=== PATIENT | female | born 1955 | race Caucasian/White ===

== ENCOUNTER 2017-09-18 16:28 | Inpatient (IN) | payer OTHER ==
[~2017-09-18] VITALS: Ht 167.6 cm; Wt 70.0 kg
[2017-09-18] MEDS ORDERED: SOD CHLORIDE 0.9% 1,000 ML IV STA (16:31)
[2017-09-18 16:33] VITALS: Ht 167.6 cm; Wt 70.0 kg
[2017-09-18 16:53] LABS: BASOPHIL # 0.1 10^3/ul (0.0-0.1); BASOPHILS % 0.7 % (0.0-2.0); EOSINOPHILS # 0.5 10^3/ul (0.0-0.5); EOSINOPHILS % 5.3 % (0.0-7.0); HEMATOCRIT 36.8 % (37.0-47.0); HEMOGLOBIN 12.3 g/dl (12.0-16.0); LYMPHOCYTES # 2.4 10^3/ul (0.8-2.9); LYMPHOCYTES % 25.7 % (15.0-51.0); MEAN CORPUSCULAR HEMOGLOBIN 29.6 pg (29.0-33.0); MEAN CORPUSCULAR HGB CONC 33.4 g/dl (32.0-37.0); MEAN CORPUSCULAR VOLUME 88.7 fl (82.0-101.0); MEAN PLATELET VOLUME 10.2 fl (7.4-10.4); MONOCYTE # 0.6 10^3/ul (0.3-0.9); MONOCYTES % 6.5 % (0.0-11.0); NEUTROPHIL # 5.7 10^3/ul (1.6-7.5); NEUTROPHILS % 61.3 % (39.0-77.0); PLATELET COUNT 270 10^3/UL (140-415); RED BLOOD COUNT 4.15 10^6/ul (4.20-5.40); RED CELL DISTRIBUTION WIDTH 11.9 % (11.5-14.5); WHITE BLOOD COUNT 9.4 10^3/ul (4.8-10.8)
--- NOTE | 2017-09-18 16:57 | ERD ---
ER Documentation Chief Complaint Chief Complaint BIB RA FOR EVAL OF RT HIP PAIN. S/P FALL WITH SHORTENING AND EXT ROTATION HPI This is a 62-year-old female with a past medical history of estrogen use that was recently discontinued 1-2 weeks ago who is presenting after a fall. The patient was reportedly carrying a young child down the steps when she missed the last step and fell, landing on her right hip. She felt immediate pain to the right hip and has limited range of motion to that hip secondary to pain. She is not have any pallor or cyanosis or difficulty with movement to the ankle or foot. Her tibial pulses are symmetric and intact. Her strength and sensation is normal distal to the injury. She also sustained a minor abrasion to the right elbow. The child was unharmed. The patient denies feeling sick recently. The patient denies fever or chills. The patient has had no headache or vision changes. The patient does not endorse neck or back pain. The patient denies lightheadedness or dizziness. The patient has had no chest pain or shortness of breath or trouble breathing. The patient denies nausea or vomiting. The patient denies abdominal pain or changes to bowel movements or urination. The patient has had no focal deficits. The patient has had no weakness or numbness or tingling to the face or extremities, excluding the limited range of motion to the right hip and knee secondary to pain. ROS All systems reviewed and are negative except as per history of present illness. PMhx/Soc Medical and Surgical Hx: pt denies Surgical Hx History of Surgery: Yes (right wrist surgery) Anesthesia Reaction: No Hx Neurological Disorder: No Hx Respiratory Disorders: No Hx Cardiac Disorders: No Hx Psychiatric Problems: No Hx Miscellaneous Medical Probl: Yes (Postmenopause previously on Estrogen Therapy, uterine polyp) Hx Alcohol Use: Yes (occasional) Hx Substance Use: No Hx Tobacco Use: No FmHx Family History: other (DVT (mother)), No coronary disease, No diabetes Physical Exam Vitals Vital Signs Date Time Temp Pulse Resp B/P Pulse Ox O2 Delivery O2 Flow Rate FiO2 09/18/17 16:33 98.3 82 17 162/78 99 Physical Exam Const: No apparent distress, well-developed, well-nourished Head: Atraumatic Eyes: Normal Conjunctiva. Extraocular movements intact. ENT: Normal External Ears, Nose and Mouth. Neck: Full range of motion. ~ No meningismus. Resp: Clear to auscultation bilaterally Cardio: Regular rate and rhythm, no murmurs Abd: Soft, non tender, non distended. Normal bowel sounds Skin: No petechiae or rashes Back: No midline or flank tenderness Ext: No cyanosisa. Limited range of motion to the right hip secondary to pain. Right leg is shortened and externally rotated. Mild edema to the right thigh. No external wounds. Bilateral tibial pulses strong and symmetric. Neur: Awake and alert, oriented 4. Cranial nerves intact. No facial droop. Normal strength and sensation in all extremities. Coordination with finger to nose normal. Psych: Anxious appearing Result Diagram: 09/18/17 1640 09/18/17 1640 Results 24 hrs Laboratory Tests Test 09/18/17 16:40 White Blood Count 9.410^3/ul Red Blood Count 4.1510^6/ul Hemoglobin 12.3g/dl Hematocrit 36.8% Mean Corpuscular Volume 88.7fl Mean Corpuscular Hemoglobin 29.6pg Mean Corpuscular Hemoglobin Concent 33.4g/dl Red Cell Distribution Width 11.9% Platelet Count 67227^3/UL Mean Platelet Volume 10.2fl Neutrophils % 61.3% Lymphocytes % 25.7% Monocytes % 6.5% Eosinophils % 5.3% Basophils % 0.7% Nucleated Red Blood Cells % 0.0/100WBC Neutrophils # 5.710^3/ul Lymphocytes # 2.410^3/ul Monocytes # 0.610^3/ul Eosinophils # 0.510^3/ul Basophils # 0.110^3/ul Nucleated Red Blood Cells # 0.010^3/ul Prothrombin Time 13.0Sec Prothrombin Time Ratio 1.0 INR International Normalized Ratio 0.98 Activated Partial Thromboplast Time 27.3Sec Sodium Level 145mmol/L Potassium Level 3.6mmol/L Chloride Level 107mmol/L Carbon Dioxide Level 27mmol/L Anion Gap 15 Blood Urea Nitrogen 22mg/dl Creatinine 0.85mg/dl Glucose Level 88mg/dl Calcium Level 8.8mg/dl Current Medications Medications (Trade) Dose Ordered Sig/Iftikhar Route PRN Reason Start Time Stop Time Status Last Admin Dose Admin Sodium Chloride (NS) 1,000 ml @ 1,000 mls/hr Q1H STAT IV 09/18/17 16:31 09/18/17 17:30 DC 09/18/17 16:31 Procedures/[facility] MDM The patient's presentation warrants further investigation. The patient's symptoms are consistent with a right hip fracture. Preop testing will be performed. X-rays of the pelvis, right hip, femur and knee will be obtained. The patient received 4 mg of morphine and 4 mg of Zofran prior to arrival. Her pain has reduced to a 2-3, and she does not require further pain management at this time. LABS The patient's blood work was obtained and reviewed. The patient's CBC shows no leukocytosis or left shift. The patient is afebrile and does not appear systemically ill. I do not suspect a systemic infection. The patient is not anemic today. The patient's platelet count is unremarkable. The patient's BMP shows no signs of emergent metabolic or electrolyte abnormality. The patient has normal renal function testing. Patient's INR is unremarkable. EKG EKG read by me: Rate/Rhythm: Regular rate and rhythm at a rate of 79bpm Intervals: Normal [place]: Normal Impression: Nonspecific repolarization of normality, but no evidence of acute ischemia or arrhythmia IMAGING CXR FINDINGS: The cardiomediastinal silhouette is normal. The aorta is normal. No focal consolidation, pleural effusion or pneumothorax is seen. The osseous structures are intact. IMPRESSION: No radiographic evidence of acute cardiopulmonary disease. Electronically viewed and signed by Physician Melia on 09/18/2017 17: 57 XR Pelvis FINDINGS: There is an acute intertrochanteric comminuted fracture of the right hip with varus deformity. There is no other fracture and there is no dislocation. There is no lytic or blastic lesion. Articular surfaces are intact. The sacroiliac joints are grossly unremarkable. There is no radiopaque foreign body. IMPRESSION: Acute intertrochanteric comminuted fracture of the right hip with varus deformity. Otherwise unremarkable frontal view of the pelvis. Electronically viewed and signed by .Gordo Ortiz MD, on 09/18/2017 17:20 XR R Hip FINDINGS: There is an acute intertrochanteric comminuted fracture of the right hip with varus deformity. There is no other fracture and there is no dislocation. The soft tissues are normal. Articular surfaces are intact. There is no lytic or blastic lesion. There is no radiopaque foreign body. IMPRESSION: Acute intertrochanteric comminuted fracture of the right hip with varus deformity. Otherwise unremarkable study. Electronically viewed and signed by .Gordo Ortiz MD, on 09/18/2017 17:19 XR R Femur FINDINGS: There is normal mineralization. Displaced, comminuted fracture of the proximal femur in the intertrochanteric region is identified. The hip joint is normal. There is soft tissue swelling. IMPRESSION: Comminuted, displaced intertrochanteric hip fracture. Electronically viewed and signed by Physician Melia on 09/18/2017 18: 08 XR R Knee FINDINGS: There is normal mineralization. No acute fracture or dislocation is seen. There is no joint effusion. The joint spaces are normal. There is no significant soft tissue swelling. IMPRESSION: No evidence of fracture. Electronically viewed and signed by Physician Melia on 09/18/2017 18: 05 TREATMENT/DISPOSITION The right intertrochanteric femur fracture that will require surgical intervention. Dr. Ramachandran was called to discuss the case. He will see the patient in the hospital. At this time, I feel that the patient requires admission for further evaluation and management. The patient will be admitted to Panel in accordance with the patient's insurance. The patient was accepted by Dr. Thomas at 1900PM September 18, [address] [facility] floor. The patient's blood pressure was elevated at greater than 120/80 while in the emergency department. The patient was otherwise stable with no evidence of hypertensive urgency or emergency. The patient will require reevaluation of his blood pressure, which may be completed in the hospital. Departure Diagnosis: Primary Impression: Closed fracture of right hip requiring operative repair Encounter type: initial encounter Qualified Code: S72.001A - Closed fracture of right hip requiring operative repair, initial encounter Condition: CHICHO Kwok MD Sep 18, 2017 16:56
[2017-09-18 17:14] LABS: INR 0.98
[2017-09-18 17:15] LABS: PARTIAL THROMBOPLASTIN TIME 27.3 Sec (25.0-35.0)
[2017-09-18 17:16] LABS: CALCIUM 8.8 mg/dl (8.4-10.2); CREATININE 0.85 mg/dl (0.44-1.00); POTASSIUM 3.6 mmol/L (3.5-5.1)
--- NOTE | 2017-09-18 17:19 | RADRPT ---
PROCEDURE: XR Right Hip. CLINICAL INDICATION: Trauma. Right hip pain. TECHNIQUE: Two views. Frontal and lateral. COMPARISON: No prior studies are available for comparison. FINDINGS: There is an acute intertrochanteric comminuted fracture of the right hip with varus deformity. There is no other fracture and there is no dislocation. The soft tissues are normal. Articular surfaces are intact. There is no lytic or blastic lesion. There is no radiopaque foreign body. IMPRESSION: 1. Acute intertrochanteric comminuted fracture of the right hip with varus deformity. 2. Otherwise unremarkable study. RPTAT: QQ .Gordo Ortiz MD, MD Date Time Electronically viewed and signed by .Gordo Ortiz MD, on 09/18/2017 17:19 .R/
--- NOTE | 2017-09-18 17:20 | RADRPT ---
PROCEDURE: XR Pelvis. CLINICAL INDICATION: Trauma. Pelvic pain. TECHNIQUE: Single AP view of the pelvis. COMPARISON: No prior studies are available for comparison. FINDINGS: There is an acute intertrochanteric comminuted fracture of the right hip with varus deformity. There is no other fracture and there is no dislocation. There is no lytic or blastic lesion. Articular surfaces are intact. The sacroiliac joints are grossly unremarkable. There is no radiopaque foreign body. IMPRESSION: 1. Acute intertrochanteric comminuted fracture of the right hip with varus deformity. 2. Otherwise unremarkable frontal view of the pelvis. RPTAT: QQ .Gordo Ortiz MD, MD Date Time Electronically viewed and signed by .Gordo Ortiz MD, on 09/18/2017 17:20 .R/
--- NOTE | 2017-09-18 17:58 | RADRPT ---
PROCEDURE: XR Chest. CLINICAL INDICATION: Trauma TECHNIQUE: AP Portable chest. COMPARISON: No pertinent prior examinations were submitted for comparison. FINDINGS: The cardiomediastinal silhouette is normal. The aorta is normal. No focal consolidation, pleural eff usion or pneumothorax is seen. The osseous structures are intact. IMPRESSION: No radiographic evidence of acute cardiopulmonary disease. Physician Melia Date Time Electronically viewed and signed by Michele Callejas Physician on 09/18/2017 17:57 CS/
--- NOTE | 2017-09-18 18:05 | RADRPT ---
PROCEDURE: RIGHT knee x-ray CLINICAL INDICATION: Trauma TECHNIQUE: AP, lateral and oblique views of the knee were obtained. COMPARISON: None FINDINGS: There is normal mineralization. No acute fracture or dislocation is seen. There is no joint effusion. The joint spaces are normal. There is no significant soft tissue swelling. IMPRESSION: No evidence of fracture. Physician Melia Date Time Electronically viewed and signed by Physician Melia on 09/18/2017 18:05 /
--- NOTE | 2017-09-18 18:08 | RADRPT ---
PROCEDURE: Right femur x-ray CLINICAL INDICATION: Trauma TECHNIQUE: AP and lateral views of the femur were obtained. COMPARISON: None FINDINGS: There is normal mineralization. Displaced, comminuted fracture of the proximal femur in the intertrochanteric region is identified. The hip joint is normal. There is soft tissue swelling. IMPRESSION: Comminuted, displaced intertrochanteric hip fracture. Physician Melia Date Time Electronically viewed and signed by Physician Melia on 09/18/2017 18:08 MINDI/
[2017-09-18] MEDS ORDERED: ONDANSETRON 4 MG INJ IV PRN ×2 (19:30→22:00)
[2017-09-18] MEDS ORDERED: ACETAMINOPHEN 325 MG TAB PO PRN ×2 (19:30→22:00)
[2017-09-18] MEDS ORDERED: FENTAnyl 50 MCG/ML VIAL IV ONE (20:00)
[2017-09-18 20:19] VITALS: TEMP 98.7
[2017-09-18 20:49] VITALS: BP 154/75; RESP 20
--- NOTE | 2017-09-18 21:59 | HP ---
Date/Time of Note Date/Time of Note DATE: 09/18/17 TIME: 21:58 Assessment/Plan VTE Prophylaxis VTE Prophylaxis Intervention: SCD's Assessment/Plan Chief Complaint/Hosp Course This is a 62-year-old female being admitted to the [facility] floor for: #1 acute fracture of the right hip: status post mechanical fall. X-ray showed: Comminuted, displaced intertrochanteric hip fracture. At the current time we will keep the patient immobilized. Will advise bed rest. Pain medication with morphine for pain control. Zofran for nausea. We will keep the patient n.p.o. Orthopedic surgery Dr. Ramachandran has been consulted by the ED. Patient is able to walk up and down stairs without any shortness of breath or chest pain.. Her EKG is normal sinus rhythm at 79 bpm with no overt ST or T- wave abnormality. At the current time patient is considered a moderate risk for orthopedic surgery. . Her functional capacity is greater than 4 METS. The benefits of the surgery outweigh the risks and patient is medically optimized to proceed with surgery. #2: History of kidney stones: No symptoms at this time. #3 DVT and GI prophylaxis: SCDs to the left lower extremity, no GI prophylaxis indicated at this time. Further treatment strategy will be implemented as per the clinical course Problems: HPI/ROS Admit Date/Time Admit Date/Time Sep 18, 2017 at 19:04 Hx of Present Illness Chief complaint: Mechanical fall This is a 62-year-old female with a past medical history of estrogen use that was recently discontinued 1-2 weeks ago who is presenting after a fall. The patient was reportedly carrying a young child down the steps when she missed the last step and fell, landing on her right hip. She felt immediate pain to the right hip and has limited range of motion to that hip secondary to pain. She is not have any pallor or cyanosis or difficulty with movement to the ankle or foot. Her tibial pulses are symmetric and intact. Her strength and sensation is normal distal to the injury. She also sustained a minor abrasion to the right elbow. The child was unharmed. The patient denies feeling sick recently. The patient denies fever or chills. The patient has had no headache or vision changes. The patient does not endorse neck or back pain. The patient denies lightheadedness or dizziness. The patient has had no chest pain or shortness of breath or trouble breathing. The patient denies nausea or vomiting. The patient denies abdominal pain or changes to bowel movements or urination. The patient has had no focal deficits. The patient has had no weakness or numbness or tingling to the face or extremities, excluding the limited range of motion to the right hip and knee secondary to pain. Allergies: Sulfa Patient's: See HIREN SAAVEDRA Const: As per HPI Eyes : No pain discharge or redness or change in visual acuity ENT: No pain, sore throat, congestion, congestion, dysphagia or discharge Respiratory: No shortness of breath, cough, sputum, wheezing, or pleuritic pain Cardiovascular: No chest pain, palpitation, PND, or edema GI : no change in appetite, abdominal pain, nausea, vomiting, diarrhea, constipation, or change in the color his stool Genitourinary: No dysuria, hematuria, flank pain , discharge or CVA tenderness Musculoskeletal: As per HPI Skin: No rash, bruising or hives Neuro: No headache, dizziness, syncope, seizure, focal weakness Endocrine: No polyuria, polydipsia, temperature intolerance Psych: No hallucination, depression, anxiety or suicidal ideation PMH/Family/Social Past Medical History History of kidney stones Past Surgical History Tonsillectomy, 3, tubal ligation, polypectomy, septoplasty, right wrist surgery Family History Significant Family History: other (Blood clots: Mom, lung cancer: Dad) Social History Alcohol Use: none Smoking Status: Never smoker Drug Use: none Exam/Review of Systems Vital Signs Vitals Vital Signs Date Time Temp Pulse Resp B/P Pulse Ox O2 Delivery O2 Flow Rate FiO2 09/18/17 20:49 99.0 89 20 154/75 98 09/18/17 20:19 Room Air Exam Exam General: Patient is lying in bed, she does appear irritable at times slightly anxious, is in pain HEENT: Atraumatic, normocephalic. The pupils are equal, round and reactive. Extraocular motor are intact Neck: Supple with full range of motion. No rigidity or meningismus Chest: Nontender Lungs: Clear to auscultation bilaterally no crackles rales or wheezing Heart: Normal S1-S2, Regular rhythm and rate. No murmur, S3, or S4 Abdomen: Soft , nontender, nondistended , bowel sounds are present. No guarding no rebound tenderness , No masses or organomegaly. No costovertebral temporal angle mass Extremities: Limited range of motion to the right hip secondary to pain. Right leg is shortened and externally rotated. Mild edema to the right thigh. No external wounds. Neurologic: Normal mental status, speech normal, cranial nerves II through XII are intact, motor and sensory are intact, no focal weakness Vascular: Bilateral tibial pulses strong and symmetric. Additional Comments EKG: Rate/Rhythm: Regular rate and rhythm at a rate of 79bpm Intervals: Normal [place]: Normal Impression: Nonspecific repolarization of normality, but no evidence of acute ischemia or arrhythmia As per ED physician documentation IMAGING CXR FINDINGS: The cardiomediastinal silhouette is normal. The aorta is normal. No focal consolidation, pleural effusion or pneumothorax is seen. The osseous structures are intact. IMPRESSION: No radiographic evidence of acute cardiopulmonary disease. Electronically viewed and signed by Physician Melia on 09/18/2017 17: 57 XR Pelvis FINDINGS: There is an acute intertrochanteric comminuted fracture of the right hip with varus deformity. There is no other fracture and there is no dislocation. There is no lytic or blastic lesion. Articular surfaces are intact. The sacroiliac joints are grossly unremarkable. There is no radiopaque foreign body. IMPRESSION: Acute intertrochanteric comminuted fracture of the right hip with varus deformity. Otherwise unremarkable frontal view of the pelvis. Electronically viewed and signed by .Gordo Ortiz MD, MD on 09/18/2017 17:20 XR R Hip FINDINGS: There is an acute intertrochanteric comminuted fracture of the right hip with varus deformity. There is no other fracture and there is no dislocation. The soft tissues are normal. Articular surfaces are intact. There is no lytic or blastic lesion. There is no radiopaque foreign body. IMPRESSION: Acute intertrochanteric comminuted fracture of the right hip with varus deformity. Otherwise unremarkable study. Electronically viewed and signed by .Gordo Ortiz MD, MD on 09/18/2017 17:19 XR R Femur FINDINGS: There is normal mineralization. Displaced, comminuted fracture of the proximal femur in the intertrochanteric region is identified. The hip joint is normal. There is soft tissue swelling. IMPRESSION: Comminuted, displaced intertrochanteric hip fracture. Electronically viewed and signed by Physician Melia on 09/18/2017 18: 08 XR R Knee FINDINGS: There is normal mineralization. No acute fracture or dislocation is seen. There is no joint effusion. The joint spaces are normal. There is no significant soft tissue swelling. IMPRESSION: No evidence of fracture. Electronically viewed and signed by Physician Melia on 09/18/2017 18: 05 Labs Result Diagram: 09/18/17 1640 09/18/17 1640 MARTY WINTER Sep 18, 2017 21:59 MARTY WINTER Sep 18, 2017 21:59
[2017-09-18] MEDS ORDERED: DOCUSATE SODIUM 100 MG CAP PO PRN (22:00)
[2017-09-18] MEDS ORDERED: BISACODYL (EC) 5 MG TAB PO PRN (22:00)
[2017-09-18] MEDS ORDERED: HYDROCODONE/APAP (5/325) TAB PO PRN (22:00)
[2017-09-18] MEDS ORDERED: NACL 0.9% 3 ML SYG IV SCH (22:00)
[2017-09-18] MEDS ORDERED: OXYCODONE/ACETAMINOPHEN (5/325) TAB PO PRN (22:30)
[2017-09-18] MEDS: SOD CHLORIDE 0.9% 1,000 ML IV SCH (22:56)
[2017-09-19] MEDS: morphine 4 MG/ML VIAL IV PRN ×5 (01:07→13:44)
[2017-09-19 02:40] VITALS: BP 115/56; RESP 18
[2017-09-19 05:55] LABS: BASOPHILS % 0.4 % (0.0-2.0); EOSINOPHILS # 0.3 10^3/ul (0.0-0.5); EOSINOPHILS % 3.1 % (0.0-7.0); HEMATOCRIT 32.1 % (37.0-47.0); HEMOGLOBIN 10.4 g/dl (12.0-16.0); LYMPHOCYTES # 1.8 10^3/ul (0.8-2.9); LYMPHOCYTES % 22.2 % (15.0-51.0); MEAN CORPUSCULAR HEMOGLOBIN 29.2 pg (29.0-33.0); MEAN CORPUSCULAR HGB CONC 32.4 g/dl (32.0-37.0); MEAN CORPUSCULAR VOLUME 90.2 fl (82.0-101.0); MEAN PLATELET VOLUME 10.6 fl (7.4-10.4); MONOCYTE # 0.7 10^3/ul (0.3-0.9); MONOCYTES % 8.2 % (0.0-11.0); NEUTROPHIL # 5.4 10^3/ul (1.6-7.5); NEUTROPHILS % 65.7 % (39.0-77.0); PLATELET COUNT 222 10^3/UL (140-415); RED BLOOD COUNT 3.56 10^6/ul (4.20-5.40); RED CELL DISTRIBUTION WIDTH 12.2 % (11.5-14.5); WHITE BLOOD COUNT 8.2 10^3/ul (4.8-10.8)
[2017-09-19 06:12] LABS: ALBUMIN 3.3 g/dl (3.3-4.9); ALBUMIN/GLOBULIN RATIO 1.17; BILIRUBIN,INDIRECT 0.4 mg/dl (0-1.1); BILIRUBIN,TOTAL 0.4 mg/dl (0.2-1.3); CALCIUM 8.2 mg/dl (8.4-10.2); CHOL/HDL RATIO 3.5 RATIO; CREATININE 0.77 mg/dl (0.44-1.00); MAGNESIUM 1.8 mg/dl (1.7-2.5); POTASSIUM 3.8 mmol/L (3.5-5.1); TOTAL PROTEIN 6.1 g/dl (6.1-8.1)
[2017-09-19 07:11] LABS: THYROID STIMULATING HORMONE 3.34 MIU/L (0.465-4.680)
[2017-09-19 08:33] VITALS: BP 101/59; RESP 18
--- NOTE | 2017-09-19 11:05 | PN ---
Date/Time of Note Date/Time of Note DATE: 09/19/17 TIME: 10:55 Assessment/Plan VTE Prophylaxis VTE Prophylaxis Intervention: SCD's Lines/Catheters IV [facility] Peripheral IV Urinary Cath still in place: Yes Reason Cath still needed: other (indicate) Assessment/Plan Chief Complaint/Hosp Course This is a 62-year-old female with mechanical fall with resultant pain on right hip. 1. Acute intertrochanteric comminuted fracture of the right hip with varus deformity. -Orthopedic sx on board. -Continue immobilization, pain control 2. History of kidney stones. Stable. DVT and GI prophylaxis: SCDs to the left lower extremity, no GI prophylaxis indicated at this time. PLAN:F/u with orthopedics. Preop risk stratification: Given patient's medical condition, patient is at a low to intermediate risk for any untoward medical events for surgery. However, benefit likely outweigh risks and recommended to have surgical intervention. patient was seen in collaboration with DR. Salazar. Problems: Subjective 24 Hr Interval Summary Free Text/Dictation Patient lying in bed.Has pain 5/10 on right hip. Exam/Review of Systems Vital Signs Vitals Vital Signs Date Time Temp Pulse Resp B/P Pulse Ox O2 Delivery O2 Flow Rate FiO2 09/19/17 08:33 97.8 75 18 101/59 92 09/18/17 20:19 Room Air Intake and Output 09/18/17 09/18/17 09/19/17 15:00 23:00 07:00 Intake Total 1000 ml 960 ml Output Total 1400 ml Balance 1000 ml -440 ml Exam General: Well developed female, not in any acute distress . HEENT: Normocephalic, Atraumatic, No laceration or hematoma; Eyes: PEERL, Conjunctiva clear, Anicteric sclera Neck: Supple without any lymphadenopathy, nontender, no JVD, no carotid bruits, trachea midline, no thyromegaly Cardiac: S1, S2 auscultated, regular rhythm and rate, no mumurs or gallop Pulmonary: Normal respiratory effort. Chest clear to auscultation bilaterally, no adventitious breath sounds GI: Abdomen normal to inspection. Soft, non- distended, no masses, no rebound tenderness or guarding. Bowel sounds active on all four quadrants Genitourinary: Deferred Extremities: Right hip with pain. No cyanosis, clubbing, or edema. Pulses [2+] bilaterally.. No focal weakness appreciated. Neurologic: Alert to person, place, time, and situation. Affect appropriate, intact sensation. Skin: Clean,dry, and intact. No ecchymosis, no rashes, or lesions Results Result Diagram: 09/19/17 0452 09/19/17 0452 Results 24 hrs Laboratory Tests Test 09/18/17 16:40 09/19/17 04:52 White Blood Count 9.4 8.2 Red Blood Count 4.15 L 3.56 L Hemoglobin 12.3 10.4 L Hematocrit 36.8 L 32.1 L Mean Corpuscular Volume 88.7 90.2 Mean Corpuscular Hemoglobin 29.6 29.2 Mean Corpuscular Hemoglobin Concent 33.4 32.4 Red Cell Distribution Width 11.9 12.2 Platelet Count 270 222 Mean Platelet Volume 10.2 10.6 H Neutrophils % 61.3 65.7 Lymphocytes % 25.7 22.2 Monocytes % 6.5 8.2 Eosinophils % 5.3 3.1 Basophils % 0.7 0.4 Nucleated Red Blood Cells % 0.0 0.0 Neutrophils # 5.7 5.4 Lymphocytes # 2.4 1.8 Monocytes # 0.6 0.7 Eosinophils # 0.5 0.3 Basophils # 0.1 0.0 Nucleated Red Blood Cells # 0.0 0.0 Prothrombin Time 13.0 Prothrombin Time Ratio 1.0 INR International Normalized Ratio 0.98 Activated Partial Thromboplast Time 27.3 Sodium Level 145 H 142 Potassium Level 3.6 3.8 Chloride Level 107 109 Carbon Dioxide Level 27 26 Anion Gap 15 11 Blood Urea Nitrogen 22 H 15 Creatinine 0.85 0.77 Glucose Level 88 95 Calcium Level 8.8 8.2 L Hemoglobin A1c 4.9 Magnesium Level 1.8 Total Bilirubin 0.4 Direct Bilirubin 0.00 Indirect Bilirubin 0.4 Aspartate Amino Transf (AST/SGOT) 18 Alanine Aminotransferase (ALT/SGPT) 27 Alkaline Phosphatase 72 Total Protein 6.1 Albumin 3.3 Globulin 2.80 Albumin/Globulin Ratio 1.17 Triglycerides Level 93 Cholesterol Level 172 LDL Cholesterol, Calculated 104 HDL Cholesterol 49 Cholesterol/HDL Ratio 3.5 Thyroid Stimulating Hormone (TSH) 3.340 Medications Medications Current Medications Sodium Chloride (NS) 1,000 ml @ 80 mls/hr [id number] IV Last administered on 09/18 22:56; Admin Dose 80 MLS/HR; Start 09/19/17 at 00:00 Ondansetron HCl (Zofran Inj) 4 mg Q6H PRN IV NAUSEA AND/OR VOMITING; Start 09/18/17 at 22:00 Acetaminophen (Tylenol Tab) 650 mg Q6H PRN PO PAIN LEVEL 1-3 OR FEVER; Start 09/18/17 at 22:00 Acetaminophen/ Hydrocodone Bitart ([place] (5/325)) 1 tab Q6H PRN PO MODERATE PAIN LEVEL 4-6; Start 09/18/17 at 22:00 Docusate Sodium (Colace) 100 mg Q12H PRN PO CONSTIPATION; Start 09/18/17 at 22: 00 Bisacodyl (Dulcolax) 5 mg DAILY PRN PO CONSTIPATION; Start 09/18/17 at 22:00 Oxycodone/ Acetaminophen (Percocet (5/ 325)) 1 tab Q4H PRN PO PAIN; Start 09/18 at 22:30 Morphine Sulfate (morphine) 4 mg Q3H PRN IV PAIN Last administered on 10:29; Admin Dose 4 MG; Start 09/19/17 at 01:00 DAVID QUACH NP Sep 19, 2017 11:04
[2017-09-19] MEDS: SOD CHLORIDE 0.9% 1,000 ML IV SCH (13:07)
[2017-09-19 15:19] VITALS: BP 117/55; RESP 18
[2017-09-19] MEDS ORDERED: DIPHENHYDRAMINE 25 MG CAP PO PRN (16:00)
[2017-09-19 20:37] VITALS: BP 115/58; RESP 19
[2017-09-19] MEDS: DIPHENHYDRAMINE 50 MG INJ IV PRN (23:06)
[2017-09-20] VITALS (21 sets, daily range): BP systolic 81–138; BP diastolic 51–78; PULSE 83–104; RESP 8–25
[2017-09-20] MEDS: morphine 4 MG/ML VIAL IV PRN ×6 (00:51→15:56)
[2017-09-20] MEDS: SOD CHLORIDE 0.9% 1,000 ML IV SCH ×2 (00:55→14:16)
[2017-09-20 05:07] LABS: BASOPHILS % 0.5 % (0.0-2.0); EOSINOPHILS # 0.5 10^3/ul (0.0-0.5); EOSINOPHILS % 6.2 % (0.0-7.0); HEMOGLOBIN 10.3 g/dl (12.0-16.0); LYMPHOCYTES # 1.9 10^3/ul (0.8-2.9); LYMPHOCYTES % 24.5 % (15.0-51.0); MEAN CORPUSCULAR HEMOGLOBIN 29.2 pg (29.0-33.0); MEAN CORPUSCULAR HGB CONC 32.2 g/dl (32.0-37.0); MEAN CORPUSCULAR VOLUME 90.7 fl (82.0-101.0); MEAN PLATELET VOLUME 10.3 fl (7.4-10.4); MONOCYTE # 0.6 10^3/ul (0.3-0.9); MONOCYTES % 7.9 % (0.0-11.0); NEUTROPHIL # 4.6 10^3/ul (1.6-7.5); NEUTROPHILS % 60.5 % (39.0-77.0); PLATELET COUNT 200 10^3/UL (140-415); RED BLOOD COUNT 3.53 10^6/ul (4.20-5.40); RED CELL DISTRIBUTION WIDTH 12.5 % (11.5-14.5); WHITE BLOOD COUNT 7.6 10^3/ul (4.8-10.8)
[2017-09-20 05:45] LABS: CALCIUM 8.5 mg/dl (8.4-10.2); CREATININE 0.72 mg/dl (0.44-1.00); POTASSIUM 4.1 mmol/L (3.5-5.1)
--- NOTE | 2017-09-20 09:26 | PN ---
Date/Time of Note Date/Time of Note DATE: 09/20/17 TIME: 09:26 Assessment/Plan VTE Prophylaxis VTE Prophylaxis Intervention: SCD's Lines/Catheters IV Catheter Type (from [facility]): Peripheral IV Urinary Cath still in place: Yes Reason Cath still needed: other (indicate) Assessment/Plan Chief Complaint/Hosp Course This is a 62-year-old female with mechanical fall with resultant pain on right hip. 1.Acute intertrochanteric comminuted fracture of the right hip with varus deformity. -Orthopedic sx on board and patient is scheduled for right hip arthroplasty today. -Postoperative antibiotic, anticoagulation, weightbearing per surgery. Continue pain control. 2. History of kidney stones. Stable. DVT and GI prophylaxis: SCDs to the left lower extremity, no GI prophylaxis indicated at this time. PLAN:F/u with orthopedics. Preop risk stratification: Given patient's medical condition, patient is at a low to intermediate risk for any untoward medical events for surgery. However, benefit likely outweigh risks and recommended to have surgical intervention. Patient was seen in collaboration with DR. Salazar. Problems: Subjective 24 Hr Interval Summary Free Text/Dictation Patient with improved pain on right hip. Currently she is n.p.o. for right hip surgery tonight. Exam/Review of Systems Vital Signs Vitals Vital Signs Date Time Temp Pulse Resp B/P Pulse Ox O2 Delivery O2 Flow Rate FiO2 09/20/17 07:57 98.1 83 16 112/59 99 Room Air Intake and Output 09/19/17 09/19/17 09/20/17 15:00 23:00 07:00 Intake Total 1880 ml Output Total 1100 ml Balance 780 ml Exam General: Well developed female, not in any acute distress . HEENT: Normocephalic, Atraumatic, No laceration or hematoma; Eyes: PEERL, Conjunctiva clear, Anicteric sclera Neck: Supple without any lymphadenopathy, nontender, no JVD, no carotid bruits, trachea midline, no thyromegaly Cardiac: S1, S2 auscultated, regular rhythm and rate, no mumurs or gallop Pulmonary: Normal respiratory effort. Chest clear to auscultation bilaterally, no adventitious breath sounds GI: Abdomen normal to inspection. Soft, non- distended, no masses, no rebound tenderness or guarding. Bowel sounds active on all four quadrants Genitourinary: Deferred Extremities: Right hip with pain. No cyanosis, clubbing, or edema. Pulses [2+] bilaterally.. No focal weakness appreciated. Neurologic: Alert to person, place, time, and situation. Affect appropriate, intact sensation. Skin: Clean,dry, and intact. No ecchymosis, no rashes, or lesions Results Result Diagram: 09/20/17 0431 09/20/17 0431 Results 24 hrs Laboratory Tests Test 09/20/17 04:31 White Blood Count 7.6 Red Blood Count 3.53 L Hemoglobin 10.3 L Hematocrit 32.0 L Mean Corpuscular Volume 90.7 Mean Corpuscular Hemoglobin 29.2 Mean Corpuscular Hemoglobin Concent 32.2 Red Cell Distribution Width 12.5 Platelet Count 200 Mean Platelet Volume 10.3 Neutrophils % 60.5 Lymphocytes % 24.5 Monocytes % 7.9 Eosinophils % 6.2 Basophils % 0.5 Nucleated Red Blood Cells % 0.0 Neutrophils # 4.6 Lymphocytes # 1.9 Monocytes # 0.6 Eosinophils # 0.5 Basophils # 0.0 Nucleated Red Blood Cells # 0.0 Sodium Level 140 Potassium Level 4.1 Chloride Level 109 Carbon Dioxide Level 26 Anion Gap 9 Blood Urea Nitrogen 12 Creatinine 0.72 Glucose Level 103 Calcium Level 8.5 Medications Medications Current Medications Sodium Chloride (NS) 1,000 ml @ 80 mls/hr [id number] IV Last administered on 09/20t 00:55; Admin Dose 80 MLS/HR; Start 09/19/17 at 00:00 Ondansetron HCl (Zofran Inj) 4 mg Q6H PRN IV NAUSEA AND/OR VOMITING; Start 09/18/17 at 22:00 Acetaminophen (Tylenol Tab) 650 mg Q6H PRN PO PAIN LEVEL 1-3 OR FEVER; Start 09/18/17 at 22:00 Acetaminophen/ Hydrocodone Bitart ([place] (5/325)) 1 tab Q6H PRN PO MODERATE PAIN LEVEL 4-6; Start 09/18/17 at 22:00 Docusate Sodium (Colace) 100 mg Q12H PRN PO CONSTIPATION; Start 09/18/17 at 22: 00 Bisacodyl (Dulcolax) 5 mg DAILY PRN PO CONSTIPATION; Start 09/18/17 at 22:00 Oxycodone/ Acetaminophen (Percocet (5/ 325)) 1 tab Q4H PRN PO PAIN; Start 09/18 at 22:30 Morphine Sulfate (morphine) 4 mg Q3H PRN IV PAIN Last administered on 06:47; Admin Dose 4 MG; Start 09/19/17 at 01:00 Diphenhydramine HCl (Benadryl) 25 mg Q6H PRN PO ITCHING; Start 09/19/17 at 16: 00 Diphenhydramine HCl (Benadryl) 25 mg Q6H PRN IV ITCHING; Start 09/19/17 at 16: 00 DAVID QUACH NP Sep 20, 2017 09:26
--- NOTE | 2017-09-20 18:18 | HPN ---
Date/Time of Note Date/Time of Note DATE: 09/20/17 TIME: 18:17 Interval H&P Admission Note Pt. seen H&P reviewed: No system changes AMOS MCGILL MD Sep 20, 2017 18:18
[2017-09-20] MEDS ORDERED: FENTAnyl 50 MCG/ML VIAL ONE (18:59)
[2017-09-20] MEDS ORDERED: morphine SULFATE/PF (10 MG/10 ML) INJ ONE (19:14)
[2017-09-20] MEDS ORDERED: CEFAZOLIN 1 GM INJ ONE (20:57)
[2017-09-20] MEDS ORDERED: PROPOFOL 20 ML ONE (20:57)
[2017-09-20] MEDS ORDERED: LIDOCAINE 2% (SDV) 5 ML INJ ONE (20:57)
[2017-09-20] MEDS ORDERED: ROCURONIUM 50 MG INJ ONE (20:57)
[2017-09-20] MEDS ORDERED: SUCCINYLCHOLINE CHLORIDE 100 MG/5 ML SYG IV ONE (20:57)
[2017-09-20] MEDS ORDERED: SUGAMMADEX SODIUM 200 MG/2 ML VIAL IV ONE (20:57)
[2017-09-20] MEDS ORDERED: ONDANSETRON 4 MG INJ IV PRN (21:30)
[2017-09-20] MEDS ORDERED: MEPERIDINE 25 MG INJ IV PRN (21:30)
[2017-09-20] MEDS ORDERED: HYDROmorphONE (0.2 MG/ML) 10ML SYG IV PRN ×2 (21:30)
[2017-09-20] MEDS ORDERED: METOCLOPRAMIDE 10 MG INJ IV PRN (21:30)
[2017-09-20] MEDS ORDERED: FENTAnyl 50 MCG/ML VIAL IV PRN ×2 (21:30)
[2017-09-20] MEDS ORDERED: DIPHENHYDRAMINE 50 MG INJ IV PRN (21:30)
--- NOTE | 2017-09-20 21:59 | SIPON ---
Date/Time of Note Date/Time of Note DATE: 09/20/17 TIME: 21:52 Operative Report Preoperative Diagnosis inter and subtrochanteric fracture of Rt. hip Postoperative Diagnosis same Operation/Procedure Performed O.R.I.F.of inter and subtrochanteric fracture of Rt. hip Surgeon see signature line assistant front office manager none Anesthesia: general Estimated blood loss: 50 - 100 ml's Transfusion Required none Specimen none Grafts/Implants ramma nail , long Complications none AMOS MCGILL MD Sep 20, 2017 21:59
[2017-09-20] MEDS ORDERED: NACL 0.9% 3 ML SYG IV SCH (22:00)
[2017-09-20] MEDS ORDERED: oxyCODONE 5 MG TAB PO PRN ×2 (22:00)
--- NOTE | 2017-09-20 22:17 | RADRPT ---
PROCEDURE: XR Hip. CLINICAL INDICATION: Intertrochanteric fracture of the right hip. TECHNIQUE: Single AP view of the right hip was performed. COMPARISON: 09/18/2017 right hip series. FINDINGS: Improved anatomic alignment previously seen intertrochanteric fracture of the right hip with new dyn amic screw and michelle fixation. There is no evident hardware complication. Post surgical air and fluid are seen over the right hip.. IMPRESSION: Internal metallic fixation of the right hip without evident hardware complication. RPTAT: [facility] Physician Dov Date Time Electronically viewed and signed by Physician Dov on 09/20/2017 22:17 RS/
[2017-09-21] VITALS (7 sets, daily range): BP systolic 100–130; BP diastolic 51–60; PULSE 97–101; RESP 16–20
[2017-09-21] MEDS: DIPHENHYDRAMINE 50 MG INJ IV PRN (00:17)
[2017-09-21] MEDS: DEXTROSE 5%-LR 1,000 ML IV SCH ×2 (01:18→10:02)
[2017-09-21] MEDS: SOD CHLORIDE 0.9% 1,000 ML IV SCH (02:00)
[2017-09-21] MEDS: CEFAZOLIN 1 GM/50 ML (PMX) 50 ML IVPB SCH ×3 (04:36→19:57)
[2017-09-21] MEDS: morphine 2 MG INJ IV PRN (04:37)
[2017-09-21 05:22] LABS: BASOPHILS % 0.2 % (0.0-2.0); EOSINOPHILS # 0.1 10^3/ul (0.0-0.5); EOSINOPHILS % 0.7 % (0.0-7.0); HEMATOCRIT 26.9 % (37.0-47.0); HEMOGLOBIN 8.8 g/dl (12.0-16.0); LYMPHOCYTES # 0.8 10^3/ul (0.8-2.9); LYMPHOCYTES % 9.9 % (15.0-51.0); MEAN CORPUSCULAR HEMOGLOBIN 29.3 pg (29.0-33.0); MEAN CORPUSCULAR HGB CONC 32.7 g/dl (32.0-37.0); MEAN CORPUSCULAR VOLUME 89.7 fl (82.0-101.0); MEAN PLATELET VOLUME 10.3 fl (7.4-10.4); MONOCYTE # 0.7 10^3/ul (0.3-0.9); MONOCYTES % 8.1 % (0.0-11.0); NEUTROPHIL # 6.6 10^3/ul (1.6-7.5); NEUTROPHILS % 80.9 % (39.0-77.0); PLATELET COUNT 172 10^3/UL (140-415); RED CELL DISTRIBUTION WIDTH 11.9 % (11.5-14.5); WHITE BLOOD COUNT 8.1 10^3/ul (4.8-10.8)
--- NOTE | 2017-09-21 05:43 | RADRPT ---
PROCEDURE: Open reduction internal fixation of a right intertrochanteric fracture. CLINICAL INDICATION: Right intertrochanteric fracture. TECHNIQUE: Fluoroscopy time: 128.7 seconds. Images: 26 One or more of the following dose reduction techniques were used: - Automated exposure control. - Adjustment of the mA and/or kV according to patient size. - Use of iterative reconstruction technique. COMPARISON: 09/18/2017. FINDINGS: Intraoperative fluoroscopic services were provided for the purpose of open reduction internal fixati on of a right intertrochanteric fracture. An intramedullary michelle and interlocking fixation screw eric erses an intertrochanteric fracture. The final image demonstrates anatomic alignment. IMPRESSION: Intraoperative fluoroscopic services provided for ORIF of a right intertrochanteric fracture. RPTAT: HRSR Physician Mignon Date Time Electronically viewed and signed by Physician Mignon on 09/21/2017 05:42 RR/
[2017-09-21 05:47] LABS: CREATININE 0.66 mg/dl (0.44-1.00); MAGNESIUM 1.5 mg/dl (1.7-2.5)
[2017-09-21] MEDS: morphine 4 MG/ML VIAL IV PRN ×6 (06:35→23:46)
[2017-09-21] MEDS: ENOXAPARIN 40 MG/0.4 ML SYG SC SCH ×2 (09:25→09:27)
[2017-09-21] MEDS ORDERED: MAGNESIUM SULFATE 2 GM/50 ML 50 ML IVPB SCH (10:30)
--- NOTE | 2017-09-21 10:58 | PN ---
Date/Time of Note Date/Time of Note DATE: 09/21/17 TIME: 10:58 Assessment/Plan VTE Prophylaxis VTE Prophylaxis Intervention: LMWH Lines/Catheters [facility] Type (from [facility]): Peripheral IV Urinary Cath still in place: Yes Reason Cath still needed: other (indicate) Assessment/Plan Chief Complaint/Hosp Course This is a 62-year-old female with mechanical fall with resultant pain on right hip. 1. .Acute intertrochanteric comminuted fracture of the right hip with varus deformity. Status post ORIF on 09/20/2017. -Continue pain medications. Postoperative anticoagulation, weightbearing per surgery. -Continue incentive spirometry. 2. History of kidney stones. Stable. DVT and GI prophylaxis: Lovenox. PLAN:F/u with orthopedics recommendations postoperatively. patient was seen in collaboration with DR. Salazar. Problems: Subjective 24 Hr Interval Summary Free Text/Dictation Patient with pain, controlled with IV morphine. Currently, she is not receptive to any oral pain medications. Patient has not been assessed by physical therapy yet. Exam/Review of Systems Vital Signs Vitals Vital Signs Date Time Temp Pulse Resp B/P Pulse Ox O2 Delivery O2 Flow Rate FiO2 09/21/17 10:52 100.5 09/21/17 07:00 96 18 103/53 95 09/21/17 01:00 Room Air 09/20/17 22:30 3.0 Intake and Output 09/20/17 09/20/17 09/21/17 15:00 23:00 07:00 Intake Total 1000 ml 3020 ml 410 ml Output Total 830 ml 500 ml Balance 1000 ml 2190 ml -90 ml Exam General: Well developed female, not in any acute distress . HEENT: Normocephalic, Atraumatic, No laceration or hematoma; Eyes: PEERL, Conjunctiva clear, Anicteric sclera Neck: Supple without any lymphadenopathy, nontender, no JVD, no carotid bruits, trachea midline, no thyromegaly Cardiac: S1, S2 auscultated, regular rhythm and rate, no mumurs or gallop Pulmonary: Normal respiratory effort. Chest clear to auscultation bilaterally, no adventitious breath sounds GI: Abdomen normal to inspection. Soft, non- distended, no masses, no rebound tenderness or guarding. Bowel sounds active on all four quadrants Genitourinary: Deferred Extremities: Right hip surgical incision with intact dressing. No cyanosis, clubbing, or edema. Pulses [2+] bilaterally.. No focal weakness appreciated. Neurologic: Alert to person, place, time, and situation. Affect appropriate, intact sensation. Skin: Clean,dry, and intact. No ecchymosis, no rashes, or lesions Results Result Diagram: 09/21/17 0433 09/21/17 0433 Results 24 hrs Laboratory Tests Test 09/21/17 04:33 White Blood Count 8.1 Red Blood Count 3.00 L Hemoglobin 8.8 L Hematocrit 26.9 L Mean Corpuscular Volume 89.7 Mean Corpuscular Hemoglobin 29.3 Mean Corpuscular Hemoglobin Concent 32.7 Red Cell Distribution Width 11.9 Platelet Count 172 Mean Platelet Volume 10.3 Neutrophils % 80.9 H Lymphocytes % 9.9 L Monocytes % 8.1 Eosinophils % 0.7 Basophils % 0.2 Nucleated Red Blood Cells % 0.0 Neutrophils # 6.6 Lymphocytes # 0.8 Monocytes # 0.7 Eosinophils # 0.1 Basophils # 0.0 Nucleated Red Blood Cells # 0.0 Sodium Level 137 Potassium Level 4.0 Chloride Level 104 Carbon Dioxide Level 26 Anion Gap 11 Blood Urea Nitrogen 9 Creatinine 0.66 Glucose Level 120 Calcium Level 8.0 L Magnesium Level 1.5 L Medications Medications Current Medications Sodium Chloride (NS) 1,000 ml @ 80 mls/hr [id number] IV Last administered on 09/20 14:16; Admin Dose 80 MLS/HR; Start 09/19/17 at 00:00 Ondansetron HCl (Zofran Inj) 4 mg Q6H PRN IV NAUSEA AND/OR VOMITING Last administered on 09/20/17 22:05; Admin Dose 4 MG; Start 09/18/17 at 22:00 Acetaminophen (Tylenol Tab) 650 mg Q6H PRN PO PAIN LEVEL 1-3 OR FEVER Last administered on 09/21/17 09:18; Admin Dose 650 MG; Start 09/18/17 at 22:00 Acetaminophen/ Hydrocodone Bitart ([place] (5/325)) 1 tab Q6H PRN PO MODERATE PAIN LEVEL 4-6; Start 09/18/17 at 22:00 Docusate Sodium (Colace) 100 mg Q12H PRN PO CONSTIPATION; Start 09/18/17 at 22: 00 Bisacodyl (Dulcolax) 5 mg DAILY PRN PO CONSTIPATION; Start 09/18/17 at 22:00 Oxycodone/ Acetaminophen (Percocet (5/ 325)) 1 tab Q4H PRN PO PAIN; Start 09/18 at 22:30 Morphine Sulfate (morphine) 4 mg Q3H PRN IV PAIN Last administered on 09:29; Admin Dose 4 MG; Start 09/19/17 at 01:00 Diphenhydramine HCl (Benadryl) 25 mg Q6H PRN PO ITCHING; Start 09/19/17 at 16: 00 Diphenhydramine HCl 25 mg 25 mg Q6H PRN IV ITCHING Last administered on 00:17; Admin Dose 25 MG; Start 09/19/17 at 16:00 Dextrose/Lactated Ringer's (D5-Lr) 1,000 ml @ 80 mls/hr [id number] IV Last administered on 09/21/17 01:18; Admin Dose 80 MLS/HR; Start 09/20/17 at 21:32 Oxycodone HCl (Roxicodone) 10 mg Q3H PRN PO PAIN LEVEL 4-7; Start 09/20/17 at 22:00 Oxycodone HCl 5 mg 5 mg Q3H PRN PO PAIN LEVEL 1-3; Start 09/20/17 at 22:00 Cefazolin Sodium (Ancef 1 Gm/50 ml (Pmx)) 50 ml @ 100 mls/hr Q8H IVPB Last administered on 09/21/17 04:36; Admin Dose 100 MLS/HR; Start 09/21/17 at 04:00 ; Stop 09/21/17 at 20:29 Enoxaparin Sodium (Lovenox) 40 mg DAILY SC Last administered on 09/21/17 09:27 ; Admin Dose 40 MG; Start 09/21/17 at 08:00 Morphine Sulfate 2 mg 2 mg Q2H PRN IV PAIN Last administered on 09/21/17 04:37 ; Admin Dose 2 MG; Start 09/20/17 at 22:00 Magnesium Sulfate (Magnesium Sulfate 2 Gm/50 ml) 50 ml @ 25 mls/hr ONCE IVPB Last administered on 11/8/17at 10:47; Admin Dose 25 MLS/HR; Start 09/21/17 at 10 :30; Stop 09/21/17 at 12:29 DAVID QUACH NP Sep 21, 2017 10:58 DAVID QUACH NP Sep 21, 2017 10:58
[2017-09-21 14:39] LABS: BASOPHILS % 0.2 % (0.0-2.0); EOSINOPHILS # 0.1 10^3/ul (0.0-0.5); EOSINOPHILS % 1.1 % (0.0-7.0); HEMATOCRIT 25.3 % (37.0-47.0); HEMOGLOBIN 8.4 g/dl (12.0-16.0); LYMPHOCYTES # 0.9 10^3/ul (0.8-2.9); LYMPHOCYTES % 10.6 % (15.0-51.0); MEAN CORPUSCULAR HEMOGLOBIN 29.6 pg (29.0-33.0); MEAN CORPUSCULAR HGB CONC 33.2 g/dl (32.0-37.0); MEAN CORPUSCULAR VOLUME 89.1 fl (82.0-101.0); MEAN PLATELET VOLUME 10.1 fl (7.4-10.4); MONOCYTE # 0.8 10^3/ul (0.3-0.9); MONOCYTES % 10.1 % (0.0-11.0); NEUTROPHIL # 6.5 10^3/ul (1.6-7.5); NEUTROPHILS % 77.6 % (39.0-77.0); PLATELET COUNT 178 10^3/UL (140-415); RED BLOOD COUNT 2.84 10^6/ul (4.20-5.40); WHITE BLOOD COUNT 8.3 10^3/ul (4.8-10.8)
[2017-09-21] MEDS: CEPASTAT LOZENGE MT PRN (16:53)
[2017-09-21] MEDS ORDERED: CEPASTAT LOZENGE MT PRN (17:00)
--- NOTE | 2017-09-21 18:28 | OPR ---
DATE OF OPERATION: 09/20/2017 PREOPERATIVE DIAGNOSIS: Intertrochanteric-subtrochanteric fracture of the right hip. POSTOPERATIVE DIAGNOSIS: Intertrochanteric-subtrochanteric fracture of the right hip. OPERATIVE PROCEDURE: Open reduction and internal fixation of the intertrochanteric-subtrochanteric fracture of the right hip utilizing long gamma nail. ANESTHESIA: General anesthesia. SURGEON: Yaima Ramachandran MD OPERATION PERFORMED: Under general anesthesia the patient was placed in supine position upon the operating table. Utilizing fracture table and under fluoroscopic monitoring, manipulative reduction was carried out until an acceptable alignment could be achieved. Because of the rather unusual configuration of the fracture, obtaining acceptable alignment was somewhat difficult and time consuming. After confirming satisfactory acceptable alignment, the usual prep and drape was done exposing the right hip and right thigh. The tip of the greater trochanter was approached through the lateral longitudinal incision because of the abundance of the tissues and fat the incision had to be enlarged and make it bigger than usual. Finally through the tip of the greater trochanter, intramedullary canal was entered with guide drill and then after confirming satisfactory position of the guide drill, opening was enlarged with the cannulated drill. And a reamer guide was introduced into the intramedullary canal. After proper positioning and adjustment, measurement was made and it was my impression that 32 cm long, 10 mm wide michelle should be the proper choice. After reaming up to 11.5 mm along the reamer guide selected intramedullary michelle in the size of 32 cm by 10 mm with the 125 degrees angle was inserted. After proper adjustment, the guide pin for the lag screw was properly positioned and the measurements revealed that the proper size of the lag screw should be 80 mm. After reaming along the guide pain, the lag screw selected was screwed in. At this point, some degree of compression was achieved and then the lag screw was locked properly. Again after confirming except the alignment of the fracture and proper position of the fixation device, insertion guides were partially removed and then utilizing the guide for the distal locking screw, one distal locking screw was properly positioned stabilizing entire system. After irrigation and hemostasis, closure of the incision was carried out using 0 Vicryl for muscle and fascia and 2-0 Vicryl for subcutaneous tissues. Final skin closure was carried out with skin dexter. Usual sterile pressure dressings were applied. The patient tolerated the entire procedure very well and was sent to the recovery room in excellent condition. Dictated By: In Comfort Ramachandran MD /[email or web address]/[email or web address] /Document#: [id number]
--- NOTE | 2017-09-22 01:56 | PN ---
DATE: 09/21/2017 SUBJECTIVE DATA: First postop day. Acceptable alignment of the fracture with proper position of the fixation device. OBJECTIVE DATA: Had mild grade fever earlier, probably from postop atelectasis; however, she is afebrile now. No signs of neurovascular compromise involving the right lower extremity. Today, hemoglobin is 8.4 and hematocrit is 25.3. PLAN: Possibly transfer to acute rehab if accepted. Dictated By: In Comfort Ramachandran MD /[email or web address]/[email or web address] /Document#: [id number]
[2017-09-22] MEDS: morphine 4 MG/ML VIAL IV PRN ×4 (02:49→22:07)
--- NOTE | 2017-09-22 02:57 | CONS ---
DATE OF ADMISSION: 09/18/2017 DATE OF CONSULTATION: 09/19/2017 TYPE OF CONSULTATION: Surgery HISTORY OF PRESENT ILLNESS: The patient is a 62-year-old female who was admitted on 09/18/2017 and she was brought into the Emergency Room because of the pain and limit of motion involving her right hip. According to available information, she missed a last step of stairs while carrying a young child and fell, landing on her right hip while trying to protect the child. Following the fall, she developed immediate pain, swelling, and limited motion, and she was brought in to the Emergency Room/ PAST MEDICAL HISTORY: She has a history of kidney stones, which she is not symptomatic at this time. PAST SURGICAL HISTORY: She had several surgical procedures, including tonsillectomy, 3 C-sections, tubal ligation, polypectomy, septoplasty and a right wrist surgery in the past. PHYSICAL EXAMINATION: My examination revealed a 62-year-old female who is not in any acute distress except for the pain involving her right hip. There was a tenderness and swelling around the right hip. Range of motion of the right hip was not tested. There was a slight shortening and external rotation of the right lower extremity. There were no signs of neurovascular compromise. RADIOLOGY: X-rays of the right hip revealed a somewhat unusual fracture involving the intertrochanteric area and extending down to the subtrochanteric area. DIAGNOSTIC IMPRESSION: Intertrochanteric-subtrochanteric fracture of the right hip. PLAN: Open reduction and internal fixation as soon as she can be medically cleared for surgery. Dictated By: In Comfort Ramachandran MD /[email or web address]/carmen /Document#: [id number]
[2017-09-22 03:00] VITALS: BP 105/60; RESP 18
[2017-09-22] MEDS: CEPASTAT LOZENGE MT PRN (04:38)
[2017-09-22 05:09] LABS: BASOPHILS % 0.4 % (0.0-2.0); EOSINOPHILS # 0.3 10^3/ul (0.0-0.5); EOSINOPHILS % 3.7 % (0.0-7.0); HEMATOCRIT 22.9 % (37.0-47.0); HEMOGLOBIN 7.6 g/dl (12.0-16.0); LYMPHOCYTES # 1.1 10^3/ul (0.8-2.9); LYMPHOCYTES % 14.8 % (15.0-51.0); MEAN CORPUSCULAR HEMOGLOBIN 29.5 pg (29.0-33.0); MEAN CORPUSCULAR HGB CONC 33.2 g/dl (32.0-37.0); MEAN CORPUSCULAR VOLUME 88.8 fl (82.0-101.0); MEAN PLATELET VOLUME 10.1 fl (7.4-10.4); MONOCYTE # 0.8 10^3/ul (0.3-0.9); MONOCYTES % 10.5 % (0.0-11.0); NEUTROPHIL # 5.3 10^3/ul (1.6-7.5); NEUTROPHILS % 70.3 % (39.0-77.0); PLATELET COUNT 167 10^3/UL (140-415); RED BLOOD COUNT 2.58 10^6/ul (4.20-5.40); RED CELL DISTRIBUTION WIDTH 12.1 % (11.5-14.5); WHITE BLOOD COUNT 7.6 10^3/ul (4.8-10.8)
[2017-09-22 05:35] LABS: CALCIUM 8.1 mg/dl (8.4-10.2); CREATININE 0.73 mg/dl (0.44-1.00); MAGNESIUM 1.9 mg/dl (1.7-2.5)
[2017-09-22 08:00] VITALS: BP 123/58; RESP 18
[2017-09-22] MEDS: ENOXAPARIN 40 MG/0.4 ML SYG SC SCH (08:12)
--- NOTE | 2017-09-22 09:57 | PN ---
Date/Time of Note Date/Time of Note DATE: 09/22/17 TIME: 09:57 Assessment/Plan VTE Prophylaxis VTE Prophylaxis Intervention: LMWH Lines/Catheters IV Catheter Type (from [facility]): Peripheral IV Urinary Cath still in place: No Assessment/Plan Chief Complaint/Hosp Course This is a 62-year-old female with mechanical fall with resultant pain on right hip. 1. .Acute intertrochanteric comminuted fracture of the right hip with varus deformity. Status post ORIF on 09/20/2017. -Continue pain medications. Postoperative anticoagulation, weightbearing per surgery. -Continue incentive spirometry. 2. Anemia, likely from underlying iron deficiency combined with dilutional effect. -Obtain an panel and treat accordingly. For now, patient does not require any blood transfusion and we will monitor H&H closely. 3. History of kidney stones. Stable. DVT and GI prophylaxis: Lovenox. PLAN: Patient had been up with physical therapy. We will refer patient for further rehabilitation at [facility]. patient was seen in collaboration with DR. Salazar. Problems: Subjective 24 Hr Interval Summary Free Text/Dictation Overall, patient doing well. She had been up and ambulated with PT. Pain is improved. Exam/Review of Systems Vital Signs Vitals Vital Signs Date Time Temp Pulse Resp B/P Pulse Ox O2 Delivery O2 Flow Rate FiO2 09/22/17 08:00 98.5 87 18 123/58 98 09/21/17 01:00 Room Air 09/20/17 22:30 3.0 Intake and Output 09/21/17 09/21/17 09/22/17 15:00 23:00 07:00 Intake Total 660 ml 1450 ml 500 ml Output Total 2600 ml 1250 ml Balance 660 ml -1150 ml -750 ml Exam General: Well developed female, not in any acute distress . HEENT: Normocephalic, Atraumatic, No laceration or hematoma; Eyes: PEERL, Conjunctiva clear, Anicteric sclera Neck: Supple without any lymphadenopathy, nontender, no JVD, no carotid bruits, trachea midline, no thyromegaly Cardiac: S1, S2 auscultated, regular rhythm and rate, no mumurs or gallop Pulmonary: Normal respiratory effort. Chest clear to auscultation bilaterally, no adventitious breath sounds GI: Abdomen normal to inspection. Soft, non- distended, no masses, no rebound tenderness or guarding. Bowel sounds active on all four quadrants Genitourinary: Deferred Extremities: Right hip surgical incision with intact dressing. No cyanosis, clubbing, or edema. Pulses [2+] bilaterally.. No focal weakness appreciated. Neurologic: Alert to person, place, time, and situation. Affect appropriate, intact sensation. Skin: Clean,dry, and intact. No ecchymosis, no rashes, or lesions Results Result Diagram: 09/22/17 0436 09/22/176 Results 24 hrs Laboratory Tests Test 09/21/17 14:20 09/22/17 04:36 White Blood Count 8.3 7.6 Red Blood Count 2.84 L 2.58 L Hemoglobin 8.4 L 7.6 L Hematocrit 25.3 L 22.9 L Mean Corpuscular Volume 89.1 88.8 Mean Corpuscular Hemoglobin 29.6 29.5 Mean Corpuscular Hemoglobin Concent 33.2 33.2 Red Cell Distribution Width 12.0 12.1 Platelet Count 178 167 Mean Platelet Volume 10.1 10.1 Neutrophils % 77.6 H 70.3 Lymphocytes % 10.6 L 14.8 L Monocytes % 10.1 10.5 Eosinophils % 1.1 3.7 Basophils % 0.2 0.4 Nucleated Red Blood Cells % 0.0 0.0 Neutrophils # 6.5 5.3 Lymphocytes # 0.9 1.1 Monocytes # 0.8 0.8 Eosinophils # 0.1 0.3 Basophils # 0.0 0.0 Nucleated Red Blood Cells # 0.0 0.0 Sodium Level 137 Potassium Level 4.0 Chloride Level 103 Carbon Dioxide Level 30 Anion Gap 8 Blood Urea Nitrogen 8 Creatinine 0.73 Glucose Level 102 Calcium Level 8.1 L Magnesium Level 1.9 Medications Medications Current Medications Ondansetron HCl (Zofran Inj) 4 mg Q6H PRN IV NAUSEA AND/OR VOMITING Last administered on 09/20/17 22:05; Admin Dose 4 MG; Start 09/18/17 at 22:00 Acetaminophen (Tylenol Tab) 650 mg Q6H PRN PO PAIN LEVEL 1-3 OR FEVER Last administered on 09/21/17 09:18; Admin Dose 650 MG; Start 09/18/17 at 22:00 Acetaminophen/ Hydrocodone Bitart ([place] (5/325)) 1 tab Q6H PRN PO MODERATE PAIN LEVEL 4-6 Last administered on 09/22/17 08:01; Admin Dose 1 TAB; Start at 22:00 Docusate Sodium (Colace) 100 mg Q12H PRN PO CONSTIPATION Last administered on 09/22/17 06:02; Admin Dose 100 MG; Start 09/18/17 at 22:00 Bisacodyl (Dulcolax) 5 mg DAILY PRN PO CONSTIPATION; Start 09/18/17 at 22:00 Oxycodone/ Acetaminophen (Percocet (5/ 325)) 1 tab Q4H PRN PO PAIN; Start 09/18 at 22:30 Morphine Sulfate (morphine) 4 mg Q3H PRN IV PAIN Last administered on 09:48; Admin Dose 4 MG; Start 09/19/17 at 01:00 Diphenhydramine HCl (Benadryl) 25 mg Q6H PRN PO ITCHING; Start 09/19/17 at 16: 00 Diphenhydramine HCl (Benadryl) 25 mg Q6H PRN IV ITCHING Last administered on 00:17; Admin Dose 25 MG; Start 09/19/17 at 16:00 Oxycodone HCl (Roxicodone) 10 mg Q3H PRN PO PAIN LEVEL 4-7; Start 09/20/17 at 22:00 Oxycodone HCl (Roxicodone) 5 mg Q3H PRN PO PAIN LEVEL 1-3; Start 09/20/17 at 22 :00 Enoxaparin Sodium (Lovenox) 40 mg DAILY SC Last administered on 09/22/17 08:12 ; Admin Dose 40 MG; Start 09/21/17 at 08:00 Morphine Sulfate (morphine) 2 mg Q2H PRN IV PAIN Last administered on 04:37; Admin Dose 2 MG; Start 09/20/17 at 22:00 Phenol (Cepastat Lozenge) 1 lozenge Q1H PRN MT SORE THROAT Last administered on 09/22/17 04:38; Admin Dose 1 LOZENGE; Start 09/21/17 at 16:49 DAVID QUACH V. COMPUTER REPAIRER Sep 22, 2017 09:57
[2017-09-22 10:33] LABS: IRON 11 ug/dl (35-150)
[2017-09-22 10:42] LABS: TOTAL IRON BINDING CAPACITY 245 ug/dl (241-421)
[2017-09-22 12:44] VITALS: BP 127/68; RESP 14
[2017-09-22] MEDS: morphine 2 MG INJ IV PRN (13:31)
[2017-09-22 14:00] VITALS: BP 130/77; RESP 19
[2017-09-22] MEDS ORDERED: SOD FERRIC GLUC COMPLX 125 MG in SOD CHLORIDE 0.9% 100 ML IVPB ONE ×2 (14:30→15:00)
[2017-09-22] MEDS: DOCUSATE SODIUM 100 MG CAP PO SCH (20:15)
[2017-09-22 20:25] VITALS: BP 117/56; RESP 18
[2017-09-22] MEDS ORDERED: BACLOFEN 10 MG TAB PO PRN (20:30)
[2017-09-22] MEDS: IBUPROFEN 800 MG TAB PO PRN (20:49)
[2017-09-22] MEDS: FERROUS GLUCONATE (EC) 325 MG TAB PO SCH (21:00)
[2017-09-23 01:04] VITALS: BP 119/59; RESP 18
[2017-09-23 05:13] LABS: BASOPHIL # 0.1 10^3/ul (0.0-0.1); BASOPHILS % 0.6 % (0.0-2.0); EOSINOPHILS # 0.6 10^3/ul (0.0-0.5); EOSINOPHILS % 6.8 % (0.0-7.0); HEMATOCRIT 24.6 % (37.0-47.0); HEMOGLOBIN 8.1 g/dl (12.0-16.0); LYMPHOCYTES # 1.5 10^3/ul (0.8-2.9); LYMPHOCYTES % 18.8 % (15.0-51.0); MEAN CORPUSCULAR HEMOGLOBIN 28.8 pg (29.0-33.0); MEAN CORPUSCULAR HGB CONC 32.9 g/dl (32.0-37.0); MEAN CORPUSCULAR VOLUME 87.5 fl (82.0-101.0); MEAN PLATELET VOLUME 10.4 fl (7.4-10.4); MONOCYTE # 0.7 10^3/ul (0.3-0.9); MONOCYTES % 8.3 % (0.0-11.0); NEUTROPHIL # 5.3 10^3/ul (1.6-7.5); NEUTROPHILS % 65.1 % (39.0-77.0); PLATELET COUNT 236 10^3/UL (140-415); RED BLOOD COUNT 2.81 10^6/ul (4.20-5.40); WHITE BLOOD COUNT 8.1 10^3/ul (4.8-10.8)
[2017-09-23 05:43] LABS: CALCIUM 8.6 mg/dl (8.4-10.2); CREATININE 0.69 mg/dl (0.44-1.00); POTASSIUM 3.6 mmol/L (3.5-5.1)
[2017-09-23 07:00] VITALS: BP 132/72; RESP 18
[2017-09-23] MEDS: DOCUSATE SODIUM 100 MG CAP PO SCH (08:32)
[2017-09-23] MEDS: FERROUS GLUCONATE (EC) 325 MG TAB PO SCH ×2 (08:33→11:30)
[2017-09-23] MEDS: ENOXAPARIN 40 MG/0.4 ML SYG SC SCH (08:39)
[2017-09-23] MEDS: IBUPROFEN 800 MG TAB PO PRN ×2 (08:43→15:50)
--- NOTE | 2017-09-23 10:49 | DS ---
Date/Time of Note Date/Time of Note DATE: 09/23/17 TIME: 10:49 Discharge Summary Admission/Discharge Info Admit Date/Time Sep 18, 2017 at 19:04 Discharge Date/Time Discharge Diagnosis 1. Acute intertrochanteric comminuted fracture of the right hip with varus deformity. Status post open reduction internal fixation of intertrochanteric subtrochanteric fracture of the right hip with gamma nail on 09/20/2017. 2. Anemia, likely from underlying iron deficiency combined with dilutional effect. 3. History of kidney stones. Patient Condition: Stable Procedures 09/18/2017. X-ray pelvis. IMPRESSION: 1. Acute intertrochanteric comminuted fracture of the right hip with varus deformity. 2. Otherwise unremarkable frontal view of the pelvis. 09/20/2017. open reduction internal fixation of intertrochanteric subtrochanteric fracture of the right hip with gamma nail Hospital Course This is a 62-year-old female with no significant past medical history other than history of kidney stone, presented to the emergency room with right hip pain after she had mechanical fall. X-ray revealed fracture involving intertrochanteric area extending down to the subtrochanteric area. Patient was treated with pain medications and was admitted for orthopedic evaluation. Patient was seen by Dr. Ramachandran, orthopedic surgeon. She was continued on appropriate pain management with immobilization of affected extremity. On 2016, patient had undergone open reduction internal fixation of intertrochanteric subtrochanteric fracture of the right hip with gamma nail. Patient tolerated procedure well. Postoperatively she was continued on diet. Patient was noted with anemia with iron deficiency for which, she was started on oral iron replacement. Patient did not require any blood transfusion. Patient was seen by physical therapy and she was able to ambulate with assist. However, she required further rehabilitation and recommendation was to transfer her to acute rehabilitation unit. Disposition: Patient will be discharged to acute rehabilitation unit. Patient verbalized this instruction. Approximately 60 minutes was spent in coordinating the discharge on this patient. Patient was seen in collaboration with Dr. Salazar. Home Meds Active Scripts Docusate Sodium (Dok) 100 Mg Capsule, 100 MG PO BID, #60 CAP Prov:DAVID QUACH V. ART OBJECTS SUPERVISOR 09/23/17 Oxycodone HCl/Acetaminophen (Oxycodone-Acetaminophen 5-325) 1 Each Tablet, 1 TAB PO Q4H Y for PAIN, #30 TAB Prov:PAMELA QUACHDYA MaryFranny [employer] OBJECTS SUPERVISOR 09/23/17 [morphine] 2 MG/ML SOLN No Conflict Check, 2 MG IV Q2H Y for PAIN for 7 Days Prov:QUACH,DAVIDREFUGIO Feliz [employer] OBJECTS SUPERVISOR 09/23/17 Acetaminophen (MAPAP) 325 Mg Tablet, 650 MG PO Q6H Y for PAIN LEVEL 1-3 OR FEVER , #60 TAB Prov:LOUISE QUACHA Mary. ART OBJECTS SUPERVISOR 09/23/17 Ibuprofen* (Ibuprofen*) 800 Mg Tablet, 800 MG PO Q6H Y for PAIN, #60 TAB Prov:QUACH,DAVIDREFUGIO Feliz ART OBJECTS SUPERVISOR 09/23/17 Enoxaparin Sodium (Enoxaparin Sodium) 40 Mg/0.4 Ml Syringe, 40 MG SC DAILY for 7 Days Prov:QUACH,DAVIDREFUGIO Feliz ART OBJECTS SUPERVISOR 09/23/17 Ferrous Gluconate* (Fergon*) 325 Mg Tab, 325 MG PO BID, #60 TAB Prov:PHILOMENADAVIDREFUGIO Feliz NP 09/23/17 Primary Care Provider Care Physician No Primary Pending Labs Laboratory Tests Test 09/23/17 04:44 White Blood Count 8.110^3/ul (4.8-10.8) Red Blood Count 2.8110^6/ul (4.20-5.40) Hemoglobin 8.1g/dl (12.0-16.0) Hematocrit 24.6% (37.0-47.0) Mean Corpuscular Volume 87.5fl (82.0-101.0) Mean Corpuscular Hemoglobin 28.8pg (29.0-33.0) Mean Corpuscular Hemoglobin Concent 32.9g/dl (32.0-37.0) Red Cell Distribution Width 12.0% (11.5-14.5) Platelet Count 66322^3/UL (140-415) Mean Platelet Volume 10.4fl (7.4-10.4) Neutrophils % 65.1% (39.0-77.0) Lymphocytes % 18.8% (15.0-51.0) Monocytes % 8.3% (0.0-11.0) Eosinophils % 6.8% (0.0-7.0) Basophils % 0.6% (0.0-2.0) Nucleated Red Blood Cells % 0.0/100WBC (0.0-0.0) Neutrophils # 5.310^3/ul (1.6-7.5) Lymphocytes # 1.510^3/ul (0.8-2.9) Monocytes # 0.710^3/ul (0.3-0.9) Eosinophils # 0.610^3/ul (0.0-0.5) Basophils # 0.110^3/ul (0.0-0.1) Nucleated Red Blood Cells # 0.010^3/ul (0.0-0.0) Sodium Level 142mmol/L (135-144) Potassium Level 3.6mmol/L (3.5-5.1) Chloride Level 105mmol/L (97-110) Carbon Dioxide Level 29mmol/L (21-31) Anion Gap 12 (8-16) Blood Urea Nitrogen 11mg/dl (7-20) Creatinine 0.69mg/dl (0.44-1.00) Glucose Level 119mg/dl (70-220) Calcium Level 8.6mg/dl (8.4-10.2) DAVID QUACH V. ART OBJECTS SUPERVISOR Sep 23, 2017 10:49
--- NOTE | 2017-09-23 11:05 | PDOCDIS ---
Discharge Instructions CONDITION Patient Condition: Stable HOME CARE INSTRUCTIONS: Special Diet: REGULAR FOLLOW UP/APPOINTMENTS Follow-up Plan Orthopedic follow-up with in 2 weeks Follow-up with PCP after discharge DAVID QUACH NP Sep 23, 2017 11:05
[2017-09-23] MEDS ORDERED: OXYC-438 PO (11:06)
[2017-09-23] MEDS ORDERED: IBUP800T25 PO (11:06)
[2017-09-23] MEDS ORDERED: morphine IV (11:06)
[2017-09-23] MEDS ORDERED: ACET325T40 PO (11:06)
[2017-09-23] MEDS ORDERED: FERGON PO (11:06)
[2017-09-23] MEDS ORDERED: DOCU-216 PO (11:06)
[2017-09-23] MEDS ORDERED: ENOX40DI12 SC (11:06)
[2017-09-23] MEDS ORDERED: BACL10TA PO (11:10)
--- NOTE | 2017-09-23 11:10 | PN ---
Date/Time of Note Date/Time of Note DATE: 09/23/17 TIME: 11:09 Assessment/Plan VTE Prophylaxis VTE Prophylaxis Intervention: LMWH Lines/Catheters IV [facility] Saline Lock Urinary Cath still in place: No Assessment/Plan Chief Complaint/Hosp Course This is a 62-year-old female with mechanical fall with resultant pain on right hip. 1. .Acute intertrochanteric comminuted fracture of the right hip with varus deformity. Status post ORIF on 09/20/2017. -Continue pain medications. Postoperative anticoagulation, weightbearing per surgery. -Continue incentive spirometry. 2. Anemia, likely from underlying iron deficiency combined with dilutional effect. -Continue oral iron replacement. 3. History of kidney stones. Stable. DVT and GI prophylaxis: Lovenox. PLAN: Discharge planning to acute rehabilitation unit at [facility] today. patient was seen in collaboration with DR. Salazar. Problems: Subjective 24 Hr Interval Summary Free Text/Dictation Patient sitting up in chair. Her pain is very minimal at this point. She did not require any morphine over the past 24 hours. Patient has been evaluated by acute rehabilitation unit and has been accepted for further rehabilitation. Exam/Review of Systems Vital Signs Vitals Vital Signs Date Time Temp Pulse Resp B/P Pulse Ox O2 Delivery O2 Flow Rate FiO2 09/23/17 07:00 98.6 69 18 132/72 97 09/21/17 01:00 Room Air 09/20/17 22:30 3.0 Intake and Output 09/22/17 09/22/17 09/23/17 14:59 22:59 06:59 Intake Total 1200 ml 840 ml Output Total 1500 ml Balance -300 ml 840 ml Exam General: Well developed female, not in any acute distress . HEENT: Normocephalic, Atraumatic, No laceration or hematoma; Eyes: PEERL, Conjunctiva clear, Anicteric sclera Neck: Supple without any lymphadenopathy, nontender, no JVD, no carotid bruits, trachea midline, no thyromegaly Cardiac: S1, S2 auscultated, regular rhythm and rate, no mumurs or gallop Pulmonary: Normal respiratory effort. Chest clear to auscultation bilaterally, no adventitious breath sounds GI: Abdomen normal to inspection. Soft, non- distended, no masses, no rebound tenderness or guarding. Bowel sounds active on all four quadrants Genitourinary: Deferred Extremities: Right hip surgical incision with intact dressing. No cyanosis, clubbing, or edema. Pulses [2+] bilaterally.. No focal weakness appreciated. Neurologic: Alert to person, place, time, and situation. Affect appropriate, intact sensation. Skin: Clean,dry, and intact. No ecchymosis, no rashes, or lesions Results Result Diagram: 09/23/1744309/23/174 Results 24 hrs Laboratory Tests Test 09/23/17 04:44 White Blood Count 8.1 Red Blood Count 2.81 L Hemoglobin 8.1 L Hematocrit 24.6 L Mean Corpuscular Volume 87.5 Mean Corpuscular Hemoglobin 28.8 L Mean Corpuscular Hemoglobin Concent 32.9 Red Cell Distribution Width 12.0 Platelet Count 236 # Mean Platelet Volume 10.4 Neutrophils % 65.1 Lymphocytes % 18.8 Monocytes % 8.3 Eosinophils % 6.8 Basophils % 0.6 Nucleated Red Blood Cells % 0.0 Neutrophils # 5.3 Lymphocytes # 1.5 Monocytes # 0.7 Eosinophils # 0.6 H Basophils # 0.1 Nucleated Red Blood Cells # 0.0 Sodium Level 142 Potassium Level 3.6 Chloride Level 105 Carbon Dioxide Level 29 Anion Gap 12 Blood Urea Nitrogen 11 Creatinine 0.69 Glucose Level 119 Calcium Level 8.6 Medications Medications Current Medications Ondansetron HCl (Zofran Inj) 4 mg Q6H PRN IV NAUSEA AND/OR VOMITING Last administered on 09/20/17 22:05; Admin Dose 4 MG; Start 09/18/17 at 22:00 Acetaminophen (Tylenol Tab) 650 mg Q6H PRN PO PAIN LEVEL 1-3 OR FEVER Last administered on 09/21/17 09:18; Admin Dose 650 MG; Start 09/18/17 at 22:00 Docusate Sodium (Colace) 100 mg Q12H PRN PO CONSTIPATION Last administered on 09/22/17 06:02; Admin Dose 100 MG; Start 09/18/17 at 22:00 Bisacodyl (Dulcolax) 5 mg DAILY PRN PO CONSTIPATION; Start 09/18/17 at 22:00 Oxycodone/ Acetaminophen (Percocet (5/ 325)) 1 tab Q4H PRN PO PAIN; Start 09/18 at 22:30 Morphine Sulfate (morphine) 4 mg Q3H PRN IV PAIN Last administered on 22:07; Admin Dose 4 MG; Start 09/19/17 at 01:00 Diphenhydramine HCl (Benadryl) 25 mg Q6H PRN PO ITCHING; Start 09/19/17 at 16: 00 Diphenhydramine HCl (Benadryl) 25 mg Q6H PRN IV ITCHING Last administered on 00:17; Admin Dose 25 MG; Start 09/19/17 at 16:00 Oxycodone HCl (Roxicodone) 10 mg Q3H PRN PO PAIN LEVEL 4-7; Start 09/20/17 at 22:00 Oxycodone HCl (Roxicodone) 5 mg Q3H PRN PO PAIN LEVEL 1-3; Start 09/20/17 at 22 :00 Enoxaparin Sodium (Lovenox) 40 mg DAILY SC Last administered on 09/23/17 08: 39; Admin Dose 40 MG; Start 09/21/17 at 08:00 Morphine Sulfate (morphine) 2 mg Q2H PRN IV PAIN Last administered on 13:31; Admin Dose 2 MG; Start 09/20/17 at 22:00 Phenol (Cepastat Lozenge) 1 lozenge Q1H PRN MT SORE THROAT Last administered on 09/22/17 04:38; Admin Dose 1 LOZENGE; Start 09/21/17 at 16:49 Ferrous Gluconate (Fergon) 325 mg BID PO ; Start 09/22/17 at 21:00 Docusate Sodium (Colace) 100 mg BID PO Last administered on 09/23/17 08:32; Admin Dose 100 MG; Start 09/22/17 at 21:00 Ibuprofen (Motrin) 800 mg Q6H PRN PO PAIN Last administered on 09/23/17 08:43 ; Admin Dose 800 MG; Start 09/22/17 at 20:30 Baclofen (Lioresal) 20 mg BID PRN PO MUSCLE SPASMS Last administered on 21:26; Admin Dose 20 MG; Start 09/22/17 at 20:30 DAVID QUACH NP Sep 23, 2017 11:10
[2017-09-23] MEDS ORDERED: BISA5TAB6 PO (11:11)
[2017-09-24 20:00] VITALS: BP 167/71; RESP 19
== END 2017-09-23 16:00 | DRG 481 ==
LOC: E/R 16:28 → MS1 19:04
PROVIDERS: ADMIT Family Medicine; ATTEND Family Medicine
PROC: 0QS606Z Reposition Right Upper Femur with Intramedullary Internal Fixation Device, Open Approach (ICD-10-PCS; 2017-09-20)
PROC: 0QS606Z Reposition Right Upper Femur with Intramedullary Internal Fixation Device, Open Approach (ICD-10-PCS; principal; 2017-09-20 18:30)
DX: S72.141A Displaced intertrochanteric fracture of right femur, initial encounter for closed fracture (principal); J98.11 Atelectasis; D50.9 Iron deficiency anemia, unspecified; S72.21XA Displaced subtrochanteric fracture of right femur, initial encounter for closed fracture; W10.9XXA Fall (on) (from) unspecified stairs and steps, initial encounter; R50.82 Postprocedural fever
CPT/HCPCS: 71010; 72170; 73500; 73510; 73530; 73550; 73562; 80048; 80053; 80061; 83036; 83540; 83735; 84443; 85025; 85610; 85730; 86850; 86900; 86901; 93005; 96361; 96374; 97110; 97116; 97163; 97530; J0690; J1200; J1650; J2175; J2270; J2274; J2405; J2916; J3010; J3475; J7030; J7121

== ENCOUNTER 2017-09-23 16:42 | Inpatient (IN) | payer OTHER ==
[~2017-09-23] VITALS: Ht 320 cm; Wt 70.0 kg
[~2017-09-23 16:42] MED LIST: ACET325T40 PO; BACL10TA PO; BISA5TAB6 PO; DOCU-216 PO; ENOX40DI12 SC; FERGON PO; IBUP800T25 PO; OXYC-438 PO; morphine IV
[2017-09-23 17:10] VITALS: Ht 320 cm; Wt 70.0 kg
[2017-09-23 17:30] VITALS: BP 132/72; PULSE 72; RESP 18
[2017-09-23] MEDS ORDERED: morphine 2 MG INJ IV PRN (17:30)
[2017-09-23] MEDS ORDERED: MAGNESIUM HYDROXIDE 30ML CUP PO PRN (17:30)
[2017-09-23] MEDS ORDERED: OXYCODONE/ACETAMINOPHEN (5/325) TAB PO PRN (17:30)
[2017-09-23] MEDS ORDERED: BISACODYL (EC) 5 MG TAB PO PRN (17:30)
[2017-09-23] MEDS ORDERED: BACLOFEN 10 MG TAB PO PRN (17:30)
[2017-09-23] MEDS ORDERED: ACETAMINOPHEN 325 MG TAB PO PRN (17:30)
[2017-09-23] MEDS ORDERED: BISACODYL 10 MG SUPP PR PRN (17:30)
[2017-09-23] MEDS ORDERED: ONDANSETRON 4 MG INJ IV PRN (17:30)
[2017-09-23] MEDS ORDERED: SENNA TAB PO PRN (17:30)
[2017-09-23 18:10] LABS: ADD UMIC YES; UR ASCORBIC ACID NEGATIVE (NEGATIVE); UR BACTERIA FEW /HPF (NONE SEEN); UR BILIRUBIN (Dip) NEGATIVE (NEGATIVE); UR BLOOD (Dip) 1+ mg/dL (NEGATIVE); UR CLARITY CLEAR (CLEAR); UR COLOR YELLOW (YELLOW); UR GLUCOSE (Dip) NEGATIVE (NEGATIVE); UR KETONES (Dip) NEGATIVE (NEGATIVE); UR LEUKOCYTE ESTERASE (Dip) 1+ Leu/ul (NEGATIVE); UR NITRITE (Dip) NEGATIVE (NEGATIVE); UR RBC 7 /HPF (0-5); UR SPECIFIC GRAVITY (Dip) 1.008 (1.003-1.030); UR SQUAMOUS EPITHELIAL CELL FEW /HPF (FEW); UR TOTAL PROTEIN (Dip) NEGATIVE (NEGATIVE); UR UROBILINOGEN (Dip) NEGATIVE (NEGATIVE)
[2017-09-23 20:00] VITALS: BP 116/53; RESP 18
[2017-09-23] MEDS: FERROUS GLUCONATE (EC) 325 MG TAB PO SCH ×2 (20:27→20:30)
[2017-09-23] MEDS: DOCUSATE SODIUM 100 MG CAP PO SCH (20:27)
[2017-09-23] MEDS: IBUPROFEN 800 MG TAB PO PRN (20:27)
[2017-09-24 02:00] VITALS: BP 120/63; RESP 18
[2017-09-24] MEDS: IBUPROFEN 800 MG TAB PO PRN ×3 (02:33→22:21)
[2017-09-24 07:30] VITALS: BP 122/60; RESP 18
[2017-09-24 08:00] VITALS: BP 136/65; PULSE 80; RESP 16
[2017-09-24 08:29] LABS: BASOPHILS % 0.7 % (0.0-2.0); EOSINOPHILS # 0.6 10^3/ul (0.0-0.5); EOSINOPHILS % 9.8 % (0.0-7.0); HEMATOCRIT 24.9 % (37.0-47.0); HEMOGLOBIN 7.9 g/dl (12.0-16.0); LYMPHOCYTES % 16.5 % (15.0-51.0); MEAN CORPUSCULAR HEMOGLOBIN 28.7 pg (29.0-33.0); MEAN CORPUSCULAR HGB CONC 31.7 g/dl (32.0-37.0); MEAN CORPUSCULAR VOLUME 90.5 fl (82.0-101.0); MEAN PLATELET VOLUME 10.4 fl (7.4-10.4); MONOCYTE # 0.3 10^3/ul (0.3-0.9); MONOCYTES % 5.3 % (0.0-11.0); NEUTROPHILS % 67.4 % (39.0-77.0); PLATELET COUNT 278 10^3/UL (140-415); RED BLOOD COUNT 2.75 10^6/ul (4.20-5.40); RED CELL DISTRIBUTION WIDTH 12.2 % (11.5-14.5)
[2017-09-24 08:38] LABS: ALBUMIN 3.3 g/dl (3.3-4.9); ALBUMIN/GLOBULIN RATIO 1.06; BILIRUBIN,INDIRECT 0.5 mg/dl (0-1.1); BILIRUBIN,TOTAL 0.5 mg/dl (0.2-1.3); CALCIUM 8.5 mg/dl (8.4-10.2); CREATININE 0.65 mg/dl (0.44-1.00); POTASSIUM 3.5 mmol/L (3.5-5.1); TOTAL PROTEIN 6.4 g/dl (6.1-8.1)
[2017-09-24] MEDS: DOCUSATE SODIUM 100 MG CAP PO SCH ×2 (08:51→20:31)
[2017-09-24] MEDS: FERROUS GLUCONATE (EC) 325 MG TAB PO SCH ×4 (08:51→20:31)
[2017-09-24] MEDS: ENOXAPARIN 40 MG/0.4 ML SYG SC SCH (08:52)
--- NOTE | 2017-09-24 11:27 | CONS ---
Date/Time of Note Date/Time of Note DATE: 09/24/17 TIME: 11:27 Assessment/Plan Assessment/Plan Chief Complaint/Hosp Course 62-year-old female with mechanical fall and resultant right hip fracture, who is now status post right hip ORIF transferred to rehabilitation unit for further rehabilitation. 1. Acute intertrochanteric comminuted fracture of the right hip with varus deformity. Status post open reduction internal fixation of intertrochanteric subtrochanteric fracture of the right hip with gamma nail on 09/20/2017. -Continue pain control as needed, PT/OT evaluation and treatment. 2. Iron deficiency anemia. -Patient is not receptive for iron replacement. After multiple discussions with patient, she agreed to get 1 dose of IV iron though she could have benefited from at least 3 days IV iron. -Will give IV iron 1 dose followed by oral and replacement 2 times a day. -We will repeat hemoglobin in 1 week unless otherwise indicated. 3. History of kidney stones. Prophylaxis SCD/ambulation Approximately 60 minutes was spent on this consultation. Patient was seen in collaboration with . Problems: Consultation Date/Type/Reason Admit Date/Time Sep 23, 2017 at 16:42 Reason for Consultation Internal medicine Hx of Present Illness This is a 62-year-old female with no significant past medical history other than history of kidney stones, who apparently fell with resultant right hip fracture and had undergone open reduction and internal fixation of intertrochanteric, subtrochanteric fracture of the right hip on 09/20/2017. Patient had stable postoperative course except with noted anemia with iron deficiency. Patient was transferred to acute rehabilitation unit for further comprehensive rehabilitation. Patient denied chest pain, palpitation, shortness of breath, nausea, vomiting, abdominal discomfort, dizziness, or other constitutional symptoms. Right hip surgical site remains intact. Patient with hemoglobin 7.9, hematocrit 24.9. A 12 point review of system was assessed and is negative other than what is mentioned in HPI. Past Medical History See HPI Past Surgical History See HPI Social History Denied any history of alcohol, smoking or illicit drug use. Exam/Review of Systems Vital Signs Vitals Vital Signs Date Time Temp Pulse Resp B/P Pulse Ox O2 Delivery O2 Flow Rate FiO2 09/24/17 08:00 97.8 80 16 136/65 98 Nasal Cannula 2.0 Intake and Output 09/23/17 09/23/17 09/24/17 15:00 23:00 07:00 Intake Total 750 ml Balance 750 ml Exam General: Well developed female, not in any acute distress . HEENT: Normocephalic, Atraumatic, No laceration or hematoma; Eyes: PEERL, Conjunctiva clear, Anicteric sclera Neck: Supple without any lymphadenopathy, nontender, no JVD, no carotid bruits, trachea midline, no thyromegaly Cardiac: S1, S2 auscultated, regular rhythm and rate, no mumurs or gallop Pulmonary: Normal respiratory effort. Chest clear to auscultation bilaterally, no adventitious breath sounds GI: Abdomen normal to inspection. Soft, non- distended, no masses, no rebound tenderness or guarding. Bowel sounds active on all four quadrants Genitourinary: Deferred Extremities: Right hip surgical incision with intact dressing. No cyanosis, clubbing, or edema. Pulses [2+] bilaterally.. No focal weakness appreciated. Neurologic: Alert to person, place, time, and situation. Affect appropriate, intact sensation. Skin: Clean,dry, and intact. No ecchymosis, no rashes, or lesions Results Result Diagram: 09/24/17 0652 09/24/17 0652 Results 24 hrs Laboratory Tests Test 09/23/17 17:00 09/24/17 06:52 Urine Color YELLOW Urine Clarity CLEAR Urine pH 7.0 Urine Specific [place] 1.008 Urine Ketones NEGATIVE Urine Nitrite NEGATIVE Urine Bilirubin NEGATIVE Urine Urobilinogen NEGATIVE Urine Leukocyte Esterase 1+ H Urine Microscopic RBC 7 H Urine Microscopic WBC 2 Urine Squamous Epithelial Cells FEW Urine Bacteria FEW A Urine Hemoglobin 1+ H Urine Glucose NEGATIVE Urine Total Protein NEGATIVE White Blood Count 6.0 # Red Blood Count 2.75 L Hemoglobin 7.9 L Hematocrit 24.9 L Mean Corpuscular Volume 90.5 Mean Corpuscular Hemoglobin 28.7 L Mean Corpuscular Hemoglobin Concent 31.7 L Red Cell Distribution Width 12.2 Platelet Count 278 Mean Platelet Volume 10.4 Neutrophils % 67.4 Lymphocytes % 16.5 Monocytes % 5.3 Eosinophils % 9.8 H Basophils % 0.7 Nucleated Red Blood Cells % 0.0 Neutrophils # 4.0 Lymphocytes # 1.0 Monocytes # 0.3 Eosinophils # 0.6 H Basophils # 0.0 Nucleated Red Blood Cells # 0.0 Sodium Level 145 H Potassium Level 3.5 Chloride Level 107 Carbon Dioxide Level 27 Anion Gap 15 Blood Urea Nitrogen 13 Creatinine 0.65 Glucose Level 119 Calcium Level 8.5 Total Bilirubin 0.5 Direct Bilirubin 0.00 Indirect Bilirubin 0.5 Aspartate Amino Transf (AST/SGOT) 24 Alanine Aminotransferase (ALT/SGPT) 27 Alkaline Phosphatase 62 Total Protein 6.4 Albumin 3.3 Globulin 3.10 Albumin/Globulin Ratio 1.06 Medications Medications Current Medications Morphine Sulfate (morphine) 2 mg Q2H PRN IV PAIN; Start 09/23/17 at 17:30 Ondansetron HCl (Zofran Inj) 4 mg Q6H PRN IV NAUSEA AND/OR VOMITING; Start 08/30 at 17:30 Oxycodone/ Acetaminophen (Percocet (5/ 325)) 1 tab Q4H PRN PO PAIN; Start 08/30 at 17:30 Acetaminophen (Tylenol Tab) 650 mg Q6H PRN PO PAIN AND OR ELEVATED TEMP; Start 09/23/17 at 17:30 Baclofen (Lioresal) 10 mg BID PRN PO SPASM; Start 09/23/17 at 17:30 Bisacodyl (Dulcolax) 5 mg DAILY PRN PO CONSTIPATION; Start 09/23/17 at 17:30 Docusate Sodium (Colace) 100 mg BID PO Last administered on 09/24/17 08:51; Admin Dose 100 MG; Start 09/23/17 at 21:00 Enoxaparin Sodium (Lovenox) 40 mg DAILY SC Last administered on 09/24/17 08: 52; Admin Dose 40 MG; Start 09/24/17 at 09:00 Ferrous Gluconate (Fergon) 325 mg BID PO Last administered on 09/24/17 11:06 ; Admin Dose 325 MG; Start 09/23/17 at 21:00 Ibuprofen (Motrin) 800 mg Q6H PRN PO PAIN Last administered on 09/24/17 02:33 ; Admin Dose 800 MG; Start 09/23/17 at 17:00 Magnesium Hydroxide (Milk Of Mag) 30 ml BID PRN PO CONSTIPATION; Start at 17:30 Senna (Senokot) 1 tab BID PRN PO CONSTIPATION; Start 09/23/17 at 17:30; Stop 09/24/17 at 21:00 Bisacodyl (Dulcolax Supp) 10 mg DAILY PRN [place] CONSTIPATION; Start 09/23/17 at 17:30 Senna (Senokot) 1 tab QHS PO ; Start 09/24/17 at 21:00 DAVID QUACH NP Sep 24, 2017 11:27
--- NOTE | 2017-09-24 12:12 | CONS ---
DATE OF ADMISSION: 09/23/2017 DATE OF CONSULTATION: 09/24/2017 REHABILITATION POST ADMISSION PHYSICIAN EVALUATION REHABILITATION IMPAIRMENT CATEGORY: Right comminuted intertrochanteric hip fracture, status post OR IF. ACTIVE COMORBIDITIES: 1. Acute pain syndrome. 2. Anemia. 3. Hemorrhoids. 4. Renal stones. 5. Impairments in self-care and mobility. HISTORY OF PRESENT ILLNESS: The patient is a pleasant 62-year-old female with a history of hemorrho id, renal stones, who is status post a mechanical fall while carrying a child with resultant right i ntertrochanteric hip fracture. Patient underwent an ORIF with postoperative course notable for anem ia. Patient has been cleared to transfer to the rehabilitation unit for comprehensive interdiscipli nary rehab care. FUNCTIONAL HISTORY: Prior to recent events, she was independent in self-care tasks and mobility. C urrently, she requires moderate to maximal assist for self-care and mobility tasks. I have reviewed the preadmission screen and the patient's current functional status is consistent wi th the preadmission screen. SOCIAL HISTORY: The patient lives in [place] and was on her way to [place] for work. The patient does have a supportive family. PAST MEDICAL HISTORY: 1. Kidney stones. 2. Tonsillectomy. 3. History of . 4. History of right wrist surgery. 5. History of hemorrhoids. CURRENT MEDICATIONS: 1. Baclofen 20 mg b.i.d. p.r.n. 2. Colace 100 mg b.i.d. 3. Lovenox 40 mg subcutaneous daily. 4. Ferrous gluconate b.i.d. 5. Motrin p.r.n. 6. Morphine p.r.n. 7. Zofran p.r.n. 8. Percocet p.r.n. ALLERGIES: SULFA. PHYSICAL EXAMINATION: VITAL SIGNS: The patient is currently afebrile with stable vital signs. HEENT: Extraocular motions are intact. Oropharynx clear. NECK: Supple. LUNGS: Clear anteriorly. CARDIAC: S1, S2. ABDOMEN: Soft, nontender, positive bowel sounds. NEUROLOGIC: She is awake and alert and oriented x3. She will follow simple 1-step commands. Her c ranial nerves are grossly intact. She has good strength in bilateral upper extremity and the left l ower extremity. Dorsiflexion and plantar flexion intact on the right. PLAN: The patient has been admitted for comprehensive interdisciplinary acute rehab and is anticipa dejan to tolerate 3 hours of daily therapy in divided doses for at least 5/7 days a week. The treatme nt plan will include: 1. Physical therapy to focus on bed mobility, transfers, and household ambulation with the goal of having the patient reach a standby assist level. 2. Occupational therapy to focus on hygiene, grooming, dressing, bathing, and toileting activities with the goal of having the patient reach standby assist level. 3. Rehabilitation nursing for carryover of therapeutic interventions, the goal of continent of maryellen l and bladder, and the goal of pain adequately managed on oral medications. REHABILITATION BARRIER: Pain. INTERVENTION FOR BARRIER: Interdisciplinary approach. ESTIMATED LENGTH OF STAY: 10 days. DISPOSITION GOAL: Home. I acknowledge that I performed a full physical examination on this patient within 24 hours of admiss ion to the rehabilitation unit. I believe the patient is a good candidate for comprehensive interdi sciplinary rehab care and is anticipated to make reasonable goals in a reasonable period of time as outlined above. Dictated By: GEOVANNA CROCKETT/NTS Conf#: [id number] DID#: [id number]
[2017-09-24] MEDS ORDERED: SOD FERRIC GLUC COMPLX 125 MG in SOD CHLORIDE 0.9% 100 ML IVPB ONE (13:00)
[2017-09-24 14:00] VITALS: BP 116/60; RESP 18
[2017-09-24 19:48] VITALS: BP 124/63; RESP 18
[2017-09-24] MEDS: SENNA TAB PO SCH (20:34)
[2017-09-25] MEDS: traMADol 50 MG TAB PO PRN ×3 (00:09→22:57)
[2017-09-25 02:00] VITALS: BP 116/58; PULSE 77; RESP 18
[2017-09-25] MEDS: IBUPROFEN 800 MG TAB PO PRN ×3 (04:46→20:19)
[2017-09-25 07:00] VITALS: BP 106/62; RESP 18
[2017-09-25 08:44] LABS: BASOPHILS % 0.6 % (0.0-2.0); EOSINOPHILS # 0.5 10^3/ul (0.0-0.5); EOSINOPHILS % 10.4 % (0.0-7.0); HEMATOCRIT 22.4 % (37.0-47.0); HEMOGLOBIN 7.3 g/dl (12.0-16.0); LYMPHOCYTES # 1.5 10^3/ul (0.8-2.9); LYMPHOCYTES % 28.4 % (15.0-51.0); MEAN CORPUSCULAR HEMOGLOBIN 29.8 pg (29.0-33.0); MEAN CORPUSCULAR HGB CONC 32.6 g/dl (32.0-37.0); MEAN CORPUSCULAR VOLUME 91.4 fl (82.0-101.0); MEAN PLATELET VOLUME 9.9 fl (7.4-10.4); MONOCYTE # 0.4 10^3/ul (0.3-0.9); MONOCYTES % 7.3 % (0.0-11.0); NEUTROPHIL # 2.7 10^3/ul (1.6-7.5); NEUTROPHILS % 52.9 % (39.0-77.0); PLATELET COUNT 265 10^3/UL (140-415); RED BLOOD COUNT 2.45 10^6/ul (4.20-5.40); RED CELL DISTRIBUTION WIDTH 12.3 % (11.5-14.5); WHITE BLOOD COUNT 5.2 10^3/ul (4.8-10.8)
[2017-09-25] MEDS: DOCUSATE SODIUM 100 MG CAP PO SCH ×2 (08:55→20:20)
[2017-09-25] MEDS: FERROUS GLUCONATE (EC) 325 MG TAB PO SCH (08:55)
[2017-09-25] MEDS: ENOXAPARIN 40 MG/0.4 ML SYG SC SCH (08:56)
--- NOTE | 2017-09-25 11:02 | CONS ---
Date/Time of Note Date/Time of Note DATE: 09/25/17 TIME: 11:01 Assessment/Plan Assessment/Plan Chief Complaint/Hosp Course 62-year-old female with mechanical fall and resultant right hip fracture, who is now status post right hip ORIF transferred to rehabilitation unit for further rehabilitation. 1. Acute intertrochanteric comminuted fracture of the right hip with varus deformity. Status post open reduction internal fixation of intertrochanteric subtrochanteric fracture of the right hip with gamma nail on 09/20/2017. -Continue pain control as needed, PT/OT evaluation and treatment. 2. Iron deficiency anemia. -Continue with IV iron 3 days followed by oral replacement 2 times a day. -We will repeat hemoglobin in 1 week unless otherwise indicated. 3. History of kidney stones. Prophylaxis SCD/ambulation Approximately 60 minutes was spent on this consultation. Patient was seen in collaboration with . Problems: Consultation Date/Type/Reason Admit Date/Time Sep 23, 2017 at 16:42 Initial Consult Date 24 HR Interval Summary Free Text/Dictation No acute distress. Exam/Review of Systems Vital Signs Vitals Vital Signs Date Time Temp Pulse Resp B/P Pulse Ox O2 Delivery O2 Flow Rate FiO2 09/25/17 07:00 98.1 76 18 106/62 98 09/25/17 02:00 Room Air 09/24/17 08:00 2.0 Intake and Output 09/24/17 09/24/17 09/25/17 15:00 23:00 07:00 Intake Total 1570 ml Output Total 800 ml Balance 770 ml Exam General: Well developed female, not in any acute distress . HEENT: Normocephalic, Atraumatic, No laceration or hematoma; Eyes: PEERL, Conjunctiva clear, Anicteric sclera Neck: Supple without any lymphadenopathy, nontender, no JVD, no carotid bruits, trachea midline, no thyromegaly Cardiac: S1, S2 auscultated, regular rhythm and rate, no mumurs or gallop Pulmonary: Normal respiratory effort. Chest clear to auscultation bilaterally, no adventitious breath sounds GI: Abdomen normal to inspection. Soft, non- distended, no masses, no rebound tenderness or guarding. Bowel sounds active on all four quadrants Genitourinary: Deferred Extremities: Right hip surgical incision with intact dressing. No cyanosis, clubbing, or edema. Pulses [2+] bilaterally.. No focal weakness appreciated. Neurologic: Alert to person, place, time, and situation. Affect appropriate, intact sensation. Skin: Clean,dry, and intact. No ecchymosis, no rashes, or lesions Results Result Diagram: 09/25/17 0730 09/24/17 0652 Results 24 hrs Laboratory Tests Test 09/25/17 07:30 White Blood Count 5.2 Red Blood Count 2.45 L Hemoglobin 7.3 L Hematocrit 22.4 L Mean Corpuscular Volume 91.4 Mean Corpuscular Hemoglobin 29.8 Mean Corpuscular Hemoglobin Concent 32.6 Red Cell Distribution Width 12.3 Platelet Count 265 Mean Platelet Volume 9.9 Neutrophils % 52.9 Lymphocytes % 28.4 Monocytes % 7.3 Eosinophils % 10.4 H Basophils % 0.6 Nucleated Red Blood Cells % 0.0 Neutrophils # 2.7 Lymphocytes # 1.5 Monocytes # 0.4 Eosinophils # 0.5 Basophils # 0.0 Nucleated Red Blood Cells # 0.0 Medications Medications Current Medications Morphine Sulfate (morphine) 2 mg Q2H PRN IV PAIN; Start 09/23/17 at 17:30 Ondansetron HCl (Zofran Inj) 4 mg Q6H PRN IV NAUSEA AND/OR VOMITING; Start 08/30 at 17:30 Oxycodone/ Acetaminophen (Percocet (5/ 325)) 1 tab Q4H PRN PO PAIN; Start 08/30 at 17:30 Acetaminophen (Tylenol Tab) 650 mg Q6H PRN PO PAIN AND OR ELEVATED TEMP; Start 09/23/17 at 17:30 Baclofen (Lioresal) 10 mg BID PRN PO SPASM; Start 09/23/17 at 17:30 Bisacodyl (Dulcolax) 5 mg DAILY PRN PO CONSTIPATION; Start 09/23/17 at 17:30 Docusate Sodium (Colace) 100 mg BID PO Last administered on 09/25/17 08:55; Admin Dose 100 MG; Start 09/23/17 at 21:00 Enoxaparin Sodium (Lovenox) 40 mg DAILY SC Last administered on 09/25/17 08: 56; Admin Dose 40 MG; Start 09/24/17 at 09:00 Ferrous Gluconate (Fergon) 325 mg BID PO Last administered on 09/25/17 08:55 ; Admin Dose 325 MG; Start 09/23/17 at 21:00 Ibuprofen (Motrin) 800 mg Q6H PRN PO PAIN Last administered on 09/25/17 04:46 ; Admin Dose 800 MG; Start 09/23/17 at 17:00 Magnesium Hydroxide (Milk Of Mag) 30 ml BID PRN PO CONSTIPATION; Start at 17:30 Bisacodyl (Dulcolax Supp) 10 mg DAILY PRN [place] CONSTIPATION; Start 09/23/17 at 17:30 Senna (Senokot) 1 tab QHS PO ; Start 09/24/17 at 21:00 Tramadol HCl (Ultram) 50 mg Q4H PRN PO PAIN Last administered on 09/25/17 00: 09; Admin Dose 50 MG; Start 09/24/17 at 19:30 DAVID QUACH NP Sep 25, 2017 11:01 DAVID QUACH NP Sep 25, 2017 11:01
[2017-09-25] MEDS: SOD FERRIC GLUC COMPLX 125 MG in SOD CHLORIDE 0.9% 100 ML IVPB SCH (14:06)
[2017-09-25 20:00] VITALS: BP 125/58; RESP 18
[2017-09-25] MEDS: SENNA TAB PO SCH (20:20)
[2017-09-26 02:00] VITALS: BP 111/56; RESP 18
[2017-09-26] MEDS: IBUPROFEN 800 MG TAB PO PRN ×5 (02:15→21:09)
[2017-09-26 07:00] VITALS: BP_SYST 122; BP_DIAS 60; BP_DIAS 71; RESP 18
[2017-09-26] MEDS: DOCUSATE SODIUM 100 MG CAP PO SCH (08:46)
[2017-09-26] MEDS: ENOXAPARIN 40 MG/0.4 ML SYG SC SCH (08:46)
--- NOTE | 2017-09-26 11:15 | CONS ---
Date/Time of Note Date/Time of Note DATE: 09/26/17 TIME: 11:14 Consult Date/Type/Reason Admit Date/Time Sep 23, 2017 at 16:42 Initial Consult Date Objective Vital Signs Date Time Temp Pulse Resp B/P Pulse Ox O2 Delivery O2 Flow Rate FiO2 09/26/17 07:00 98.7 81 18 122/60 96 09/25/17 02:00 Room Air 09/24/17 08:00 2.0 Intake and Output 09/25/17 09/25/17 09/26/17 14:59 22:59 06:59 Intake Total 1310 ml 220 ml Output Total 800 ml Balance 510 ml 220 ml INTERDISCIPLINARY TEAM CONFERENCE BOWEL- Cont BLADDER-Cont SKIN- intact OT- DRESSING-cga BATHING-cga TOILETING-cga PT- BED MOBILITY-cga TRANSFERS-cga AMBULATION-cga 100 A/P- Interdisciplinary team conference held today. Please see interdisciplinary sheet. Working toward d.c. on 09/30 with post discharge follow up of physical therapy, occupational therapy. Results/Medications Result Diagram: 09/25/17 0730 09/24/17 0652 Medications Current Medications Morphine Sulfate (morphine) 2 mg Q2H PRN IV PAIN; Start 09/23/17 at 17:30 Ondansetron HCl (Zofran Inj) 4 mg Q6H PRN IV NAUSEA AND/OR VOMITING; Start 08/30 at 17:30 Oxycodone/ Acetaminophen (Percocet (5/ 325)) 1 tab Q4H PRN PO PAIN; Start 08/30 at 17:30 Acetaminophen (Tylenol Tab) 650 mg Q6H PRN PO PAIN AND OR ELEVATED TEMP; Start 09/23/17 at 17:30 Baclofen (Lioresal) 10 mg BID PRN PO SPASM; Start 09/23/17 at 17:30 Bisacodyl (Dulcolax) 5 mg DAILY PRN PO CONSTIPATION; Start 09/23/17 at 17:30 Docusate Sodium (Colace) 100 mg BID PO Last administered on 09/26/17 08:46; Admin Dose 100 MG; Start 09/23/17 at 21:00 Enoxaparin Sodium (Lovenox) 40 mg DAILY SC Last administered on 09/26/17 08: 46; Admin Dose 40 MG; Start 09/24/17 at 09:00 Magnesium Hydroxide (Milk Of Mag) 30 ml BID PRN PO CONSTIPATION; Start at 17:30 Bisacodyl (Dulcolax Supp) 10 mg DAILY PRN [place] CONSTIPATION; Start 09/23/17 at 17:30 Senna (Senokot) 1 tab QHS PO Last administered on 09/25/17 20:20; Admin Dose 1 TAB; Start 09/24/17 at 21:00 Tramadol HCl (Ultram) 50 mg Q4H PRN PO PAIN Last administered on 09/25/17 22: 57; Admin Dose 50 MG; Start 09/24/17 at 19:30 Ferrous Gluconate 325 mg 325 mg BID PO ; Start 09/26/17 at 12:30 Ferric Sodium Gluconate Complex/ Sodium Chloride (Ferrlecit/NS) 110 ml @ 100 mls/hr Q24H IVPB Last administered on 09/25/17 14:06; Admin Dose 100 MLS/HR; Start 09/25/17 at 13:00; Stop 09/27/17 at 14:05 Ibuprofen (Motrin) 800 mg Q4H PRN PO PAIN; Start 09/26/17 at 13:00 GEOVANNA COHEN MD Sep 26, 2017 11:15
--- NOTE | 2017-09-26 11:28 | CONS ---
Date/Time of Note Date/Time of Note DATE: 09/26/17 TIME: 11:27 Assessment/Plan Assessment/Plan Chief Complaint/Hosp Course 62-year-old female with mechanical fall and resultant right hip fracture, who is now status post right hip ORIF transferred to rehabilitation unit for further rehabilitation. 1. Acute intertrochanteric comminuted fracture of the right hip with varus deformity. Status post open reduction internal fixation of intertrochanteric subtrochanteric fracture of the right hip with gamma nail on 09/20/2017. -Continue pain control as needed, PT/OT evaluation and treatment. 2. Iron deficiency anemia. -Continue with IV iron 3 days followed by oral replacement 2 times a day. -We will repeat hemoglobin in 1 week unless otherwise indicated. 3. History of kidney stones. Prophylaxis SCD/ambulation Approximately 60 minutes was spent on this consultation. Patient was seen in collaboration with . Problems: Consultation Date/Type/Reason Admit Date/Time Sep 23, 2017 at 16:42 24 HR Interval Summary Free Text/Dictation No acute distress. Participating with physical therapy. Exam/Review of Systems Vital Signs Vitals Vital Signs Date Time Temp Pulse Resp B/P Pulse Ox O2 Delivery O2 Flow Rate FiO2 09/26/17 07:00 98.7 81 18 122/60 96 09/25/17 02:00 Room Air 09/24/17 08:00 2.0 Intake and Output 09/25/17 09/25/17 09/26/17 15:00 23:00 07:00 Intake Total 1310 ml 220 ml Output Total 800 ml Balance 510 ml 220 ml Exam General: Well developed female, not in any acute distress . HEENT: Normocephalic, Atraumatic, No laceration or hematoma; Eyes: PEERL, Conjunctiva clear, Anicteric sclera Neck: Supple without any lymphadenopathy, nontender, no JVD, no carotid bruits, trachea midline, no thyromegaly Cardiac: S1, S2 auscultated, regular rhythm and rate, no mumurs or gallop Pulmonary: Normal respiratory effort. Chest clear to auscultation bilaterally, no adventitious breath sounds GI: Abdomen normal to inspection. Soft, non- distended, no masses, no rebound tenderness or guarding. Bowel sounds active on all four quadrants Genitourinary: Deferred Extremities: Right hip surgical incision with intact dressing. No cyanosis, clubbing, or edema. Pulses [2+] bilaterally.. No focal weakness appreciated. Neurologic: Alert to person, place, time, and situation. Affect appropriate, intact sensation. Skin: Clean,dry, and intact. No ecchymosis, no rashes, or lesions Results Result Diagram: 09/25/17 0730 09/24/17 0652 Medications Medications Current Medications Morphine Sulfate (morphine) 2 mg Q2H PRN IV PAIN; Start 09/23/17 at 17:30 Ondansetron HCl (Zofran Inj) 4 mg Q6H PRN IV NAUSEA AND/OR VOMITING; Start 08/30 at 17:30 Oxycodone/ Acetaminophen (Percocet (5/ 325)) 1 tab Q4H PRN PO PAIN; Start 08/30 at 17:30 Acetaminophen (Tylenol Tab) 650 mg Q6H PRN PO PAIN AND OR ELEVATED TEMP; Start 09/23/17 at 17:30 Baclofen (Lioresal) 10 mg BID PRN PO SPASM; Start 09/23/17 at 17:30 Bisacodyl (Dulcolax) 5 mg DAILY PRN PO CONSTIPATION; Start 09/23/17 at 17:30 Docusate Sodium (Colace) 100 mg BID PO Last administered on 09/26/17 08:46; Admin Dose 100 MG; Start 09/23/17 at 21:00 Enoxaparin Sodium (Lovenox) 40 mg DAILY SC Last administered on 09/26/17 08: 46; Admin Dose 40 MG; Start 09/24/17 at 09:00 Magnesium Hydroxide (Milk Of Mag) 30 ml BID PRN PO CONSTIPATION; Start at 17:30 Bisacodyl (Dulcolax Supp) 10 mg DAILY PRN [place] CONSTIPATION; Start 09/23/17 at 17:30 Senna (Senokot) 1 tab QHS PO Last administered on 09/25/17 20:20; Admin Dose 1 TAB; Start 09/24/17 at 21:00 Tramadol HCl (Ultram) 50 mg Q4H PRN PO PAIN Last administered on 09/25/17 22: 57; Admin Dose 50 MG; Start 09/24/17 at 19:30 Ferrous Gluconate 325 mg 325 mg BID PO ; Start 09/26/17 at 12:30 Ferric Sodium Gluconate Complex/ Sodium Chloride (Ferrlecit/NS) 110 ml @ 100 mls/hr Q24H IVPB Last administered on 09/25/17t 14:06; Admin Dose 100 MLS/HR; Start 09/25/17 at 13:00; Stop 09/27/17 at 14:05 Ibuprofen (Motrin) 800 mg Q4H PRN PO PAIN; Start 09/26/17 at 13:00 DAIVD QUACH V. [employer] Sep 26, 2017 11:28
[2017-09-26] MEDS ORDERED: FERROUS GLUCONATE (EC) 325 MG TAB PO SCH (12:30)
[2017-09-26] MEDS: SOD FERRIC GLUC COMPLX 125 MG in SOD CHLORIDE 0.9% 100 ML IVPB SCH (13:49)
[2017-09-26] MEDS: traMADol 50 MG TAB PO PRN (18:13)
[2017-09-26 20:00] VITALS: BP 121/57; RESP 18
[2017-09-26] MEDS: SENNA TAB PO SCH (21:08)
[2017-09-27] MEDS: traMADol 50 MG TAB PO PRN ×3 (00:10→17:49)
[2017-09-27 02:00] VITALS: BP 120/60; RESP 18
[2017-09-27] MEDS: IBUPROFEN 800 MG TAB PO PRN ×3 (02:06→20:51)
[2017-09-27 07:30] VITALS: BP 111/55; RESP 18
[2017-09-27] MEDS: ASPIRIN 325 MG TAB PO SCH (08:52)
[2017-09-27] MEDS: DOCUSATE SODIUM 100 MG CAP PO SCH ×2 (08:52→20:52)
[2017-09-27] MEDS: FERROUS SULFATE (EC) 325 MG TAB PO SCH ×2 (08:52→20:52)
--- NOTE | 2017-09-27 10:32 | CONS ---
Date/Time of Note Date/Time of Note DATE: 09/27/17 TIME: 10:30 Consult Date/Type/Reason Admit Date/Time Sep 23, 2017 at 16:42 Subjective Pain under good control. Case d/w Dr. Ramachandran, and patient cleared for WBAT, with follow up xray scheduled for tomorrow Objective pulm-cta sba ambulation with FWW Vital Signs Date Time Temp Pulse Resp B/P Pulse Ox O2 Delivery O2 Flow Rate FiO2 09/27/17 07:30 98.6 82 18 111/55 97 09/25/17 02:00 Room Air 09/24/17 08:00 2.0 Intake and Output 09/26/17 09/26/17 09/27/17 15:00 23:00 07:00 Intake Total 1710 ml 240 ml Output Total 1200 ml Balance 510 ml 240 ml Results/Medications Result Diagram: 09/25/17 0730 09/24/17 0652 Medications Current Medications Morphine Sulfate (morphine) 2 mg Q2H PRN IV PAIN; Start 09/23/17 at 17:30 Ondansetron HCl (Zofran Inj) 4 mg Q6H PRN IV NAUSEA AND/OR VOMITING; Start 08/30 at 17:30 Oxycodone/ Acetaminophen (Percocet (5/ 325)) 1 tab Q4H PRN PO PAIN; Start 08/30 at 17:30 Acetaminophen (Tylenol Tab) 650 mg Q6H PRN PO PAIN AND OR ELEVATED TEMP; Start 09/23/17 at 17:30 Baclofen (Lioresal) 10 mg BID PRN PO SPASM; Start 09/23/17 at 17:30 Bisacodyl (Dulcolax) 5 mg DAILY PRN PO CONSTIPATION; Start 09/23/17 at 17:30 Magnesium Hydroxide (Milk Of Mag) 30 ml BID PRN PO CONSTIPATION; Start at 17:30 Bisacodyl (Dulcolax Supp) 10 mg DAILY PRN [place] CONSTIPATION; Start 09/23/17 at 17:30 Senna (Senokot) 1 tab QHS PO Last administered on 09/26/17 21:08; Admin Dose 1 TAB; Start 09/24/17 at 21:00 Tramadol HCl 50 mg 50 mg Q4H PRN PO PAIN Last administered on 09/27/17 06:25 ; Admin Dose 50 MG; Start 09/24/17 at 19:30 Ferric Sodium Gluconate Complex/ Sodium Chloride (Ferrlecit/NS) 110 ml @ 100 mls/hr Q24H IVPB Last administered on 09/26/17 13:49; Admin Dose 100 MLS/HR; Start 09/25/17 at 13:00; Stop 09/27/17 at 12:59 Ibuprofen (Motrin) 800 mg Q4H PRN PO PAIN Last administered on 09/27/17 02:06 ; Admin Dose 800 MG; Start 09/26/17 at 13:00 Docusate Sodium (Colace) 100 mg BID PO Last administered on 09/27/17 08:52; Admin Dose 100 MG; Start 09/27/17 at 09:00 Ferrous Sulfate (Ferrous Sulfate (Ec)) 325 mg BID PO Last administered on 09/27 08:52; Admin Dose 325 MG; Start 09/27/17 at 09:00 Aspirin (Aspirin) 325 mg DAILY PO Last administered on 09/27/17 08:52; Admin Dose 325 MG; Start 09/27/17 at 09:00 Assessment/Plan Additional Assessment/Plan Rehab- Right comminuted intertrochanteric hip fracture, status post ORIF. Continue interdisciplinary rehab program Acute pain syndrome-improved Anemia-continue iron Hemorrhoids. Renal stones. GEOVANNA COHEN MD Sep 27, 2017 10:32
--- NOTE | 2017-09-27 13:35 | CONS ---
Date/Time of Note Date/Time of Note DATE: 09/27/17 TIME: 13:28 Assessment/Plan Assessment/Plan Chief Complaint/Hosp Course 62-year-old female with mechanical fall and resultant right hip fracture, who is now status post right hip ORIF transferred to rehabilitation unit for further rehabilitation. 1. Acute intertrochanteric comminuted fracture of the right hip with varus deformity. Status post open reduction internal fixation of intertrochanteric subtrochanteric fracture of the right hip with gamma nail on 09/20/2017. -Continue pain control as needed, PT/OT evaluation and treatment. 2. Iron deficiency anemia. -Patient received total 3 doses of IV iron. She will be continued on oral replacement 2 times a day. -We will repeat hemoglobin in 1 week unless otherwise indicated. 3. History of kidney stones. Prophylaxis SCD/ambulation Approximately 60 minutes was spent on this consultation. Patient was seen in collaboration with . Problems: Consultation Date/Type/Reason Admit Date/Time Sep 23, 2017 at 16:42 24 HR Interval Summary Free Text/Dictation No acute distress.Doing well.Having mild swelling to RLE.No pain. Exam/Review of Systems Vital Signs Vitals Vital Signs Date Time Temp Pulse Resp B/P Pulse Ox O2 Delivery O2 Flow Rate FiO2 09/27/17 07:30 98.6 82 18 111/55 97 09/25/17 02:00 Room Air 09/24/17 08:00 2.0 Intake and Output 09/26/17 09/26/17 09/27/17 15:00 23:00 07:00 Intake Total 1710 ml 240 ml Output Total 1200 ml Balance 510 ml 240 ml Exam General: Well developed female, not in any acute distress . HEENT: Normocephalic, Atraumatic, No laceration or hematoma; Eyes: PEERL, Conjunctiva clear, Anicteric sclera Neck: Supple without any lymphadenopathy, nontender, no JVD, no carotid bruits, trachea midline, no thyromegaly Cardiac: S1, S2 auscultated, regular rhythm and rate, no mumurs or gallop Pulmonary: Normal respiratory effort. Chest clear to auscultation bilaterally, no adventitious breath sounds GI: Abdomen normal to inspection. Soft, non- distended, no masses, no rebound tenderness or guarding. Bowel sounds active on all four quadrants Genitourinary: Deferred Extremities: Right hip surgical incision with intact dressing. There is mild edema on right lower extremity. No cyanosis, clubbing, or edema. Pulses [2+] bilaterally.. No focal weakness appreciated. Neurologic: Alert to person, place, time, and situation. Affect appropriate, intact sensation. Skin: Clean,dry, and intact. No ecchymosis, no rashes, or lesions Results Result Diagram: 09/25/17 0730 09/24/17 0652 Medications Medications Current Medications Morphine Sulfate (morphine) 2 mg Q2H PRN IV PAIN; Start 09/23/17 at 17:30 Ondansetron HCl (Zofran Inj) 4 mg Q6H PRN IV NAUSEA AND/OR VOMITING; Start 08/30 at 17:30 Oxycodone/ Acetaminophen (Percocet (5/ 325)) 1 tab Q4H PRN PO PAIN; Start 08/30 at 17:30 Acetaminophen (Tylenol Tab) 650 mg Q6H PRN PO PAIN AND OR ELEVATED TEMP; Start 09/23/17 at 17:30 Baclofen (Lioresal) 10 mg BID PRN PO SPASM; Start 09/23/17 at 17:30 Bisacodyl (Dulcolax) 5 mg DAILY PRN PO CONSTIPATION; Start 09/23/17 at 17:30 Magnesium Hydroxide (Milk Of Mag) 30 ml BID PRN PO CONSTIPATION; Start at 17:30 Bisacodyl (Dulcolax Supp) 10 mg DAILY PRN [place] CONSTIPATION; Start 09/23/17 at 17:30 Senna (Senokot) 1 tab QHS PO Last administered on 09/26/17 21:08; Admin Dose 1 TAB; Start 09/24/17 at 21:00 Tramadol HCl (Ultram) 50 mg Q4H PRN PO PAIN Last administered on 09/27/17 06: 25; Admin Dose 50 MG; Start 09/24/17 at 19:30 Ibuprofen (Motrin) 800 mg Q4H PRN PO PAIN Last administered on 09/27/17 12:57 ; Admin Dose 800 MG; Start 09/26/17 at 13:00 Docusate Sodium (Colace) 100 mg BID PO Last administered on 09/27/17 08:52; Admin Dose 100 MG; Start 09/27/17 at 09:00 Ferrous Sulfate (Ferrous Sulfate (Ec)) 325 mg BID PO Last administered on 09/27 08:52; Admin Dose 325 MG; Start 09/27/17 at 09:00 Aspirin (Aspirin) 325 mg DAILY PO Last administered on 09/27/17 08:52; Admin Dose 325 MG; Start 09/27/17 at 09:00 DAVID QUACH NP Sep 27, 2017 13:35
[2017-09-27 20:00] VITALS: BP 111/53; PULSE 84; RESP 16
[2017-09-27] MEDS: SENNA TAB PO SCH (20:52)
[2017-09-28] MEDS: traMADol 50 MG TAB PO PRN ×3 (00:19→18:21)
[2017-09-28 02:00] VITALS: BP 116/58; PULSE 80; RESP 18
[2017-09-28] MEDS: IBUPROFEN 800 MG TAB PO PRN (06:38)
[2017-09-28 08:01] VITALS: BP 128/79; PULSE 95; RESP 18
[2017-09-28] MEDS: FERROUS SULFATE (EC) 325 MG TAB PO SCH ×2 (08:03→20:42)
[2017-09-28] MEDS: DOCUSATE SODIUM 100 MG CAP PO SCH ×2 (08:03→20:42)
[2017-09-28] MEDS: ASPIRIN 325 MG TAB PO SCH (08:03)
[2017-09-28] MEDS ORDERED: FERROUS SULFATE (EC) 325 MG TAB PO SCH (09:00)
--- NOTE | 2017-09-28 09:08 | CONS ---
Date/Time of Note Date/Time of Note DATE: 09/28/17 TIME: 09:07 Assessment/Plan Assessment/Plan Chief Complaint/Hosp Course 62-year-old female with mechanical fall and resultant right hip fracture, who is now status post right hip ORIF transferred to rehabilitation unit for further rehabilitation. 1. Acute intertrochanteric comminuted fracture of the right hip with varus deformity. Status post open reduction internal fixation of intertrochanteric subtrochanteric fracture of the right hip with gamma nail on 09/20/2017. -Continue pain control as needed, PT/OT evaluation and treatment. 2. Iron deficiency anemia. -Patient received total 3 doses of IV iron. She will be continued on oral replacement 2 times a day. -We will repeat hemoglobin in AM. 3. History of kidney stones. Prophylaxis SCD/ambulation (RECOMMEND ASPIRIN 325 MG X [id number]) Patient was seen in collaboration with . Problems: Consultation Date/Type/Reason Admit Date/Time Sep 23, 2017 at 16:42 Exam/Review of Systems Vital Signs Vitals Vital Signs Date Time Temp Pulse Resp B/P Pulse Ox O2 Delivery O2 Flow Rate FiO2 09/28/17 08:01 98.2 95 18 128/79 99 Room Air 09/24/17 08:00 2.0 Intake and Output 09/27/17 09/27/17 09/28/17 15:00 23:00 07:00 Intake Total 550 ml Balance 550 ml Exam General: Well developed female, not in any acute distress . HEENT: Normocephalic, Atraumatic, No laceration or hematoma; Eyes: PEERL, Conjunctiva clear, Anicteric sclera Neck: Supple without any lymphadenopathy, nontender, no JVD, no carotid bruits, trachea midline, no thyromegaly Cardiac: S1, S2 auscultated, regular rhythm and rate, no mumurs or gallop Pulmonary: Normal respiratory effort. Chest clear to auscultation bilaterally, no adventitious breath sounds GI: Abdomen normal to inspection. Soft, non- distended, no masses, no rebound tenderness or guarding. Bowel sounds active on all four quadrants Genitourinary: Deferred Extremities: Right hip surgical incision with intact dressing. There is mild edema on right lower extremity. No cyanosis, clubbing, or edema. Pulses [2+] bilaterally.. No focal weakness appreciated. Neurologic: Alert to person, place, time, and situation. Affect appropriate, intact sensation. Skin: Clean,dry, and intact. No ecchymosis, no rashes, or lesions Results Result Diagram: 09/25/17 0730 09/24/17 0652 Medications Medications Current Medications Morphine Sulfate (morphine) 2 mg Q2H PRN IV PAIN; Start 09/23/17 at 17:30 Ondansetron HCl (Zofran Inj) 4 mg Q6H PRN IV NAUSEA AND/OR VOMITING; Start 08/30 at 17:30 Oxycodone/ Acetaminophen (Percocet (5/ 325)) 1 tab Q4H PRN PO PAIN; Start 08/30 at 17:30 Acetaminophen (Tylenol Tab) 650 mg Q6H PRN PO PAIN AND OR ELEVATED TEMP; Start 09/23/17 at 17:30 Baclofen (Lioresal) 10 mg BID PRN PO SPASM; Start 09/23/17 at 17:30 Bisacodyl (Dulcolax) 5 mg DAILY PRN PO CONSTIPATION; Start 09/23/17 at 17:30 Magnesium Hydroxide (Milk Of Mag) 30 ml BID PRN PO CONSTIPATION; Start at 17:30 Bisacodyl (Dulcolax Supp) 10 mg DAILY PRN [place] CONSTIPATION; Start 09/23/17 at 17:30 Senna (Senokot) 1 tab QHS PO Last administered on 09/27/17 20:52; Admin Dose 1 TAB; Start 09/24/17 at 21:00 Tramadol HCl (Ultram) 50 mg Q4H PRN PO PAIN Last administered on 09/28/17 00: 19; Admin Dose 50 MG; Start 09/24/17 at 19:30 Ibuprofen (Motrin) 800 mg Q4H PRN PO PAIN Last administered on 09/28/17 06:38 ; Admin Dose 800 MG; Start 09/26/17 at 13:00 Docusate Sodium (Colace) 100 mg BID PO Last administered on 09/28/17 08:03; Admin Dose 100 MG; Start 09/27/17 at 09:00 Ferrous Sulfate (Ferrous Sulfate (Ec)) 325 mg BID PO Last administered on 09/28 08:03; Admin Dose 325 MG; Start 09/27/17 at 09:00 Aspirin (Aspirin) 325 mg DAILY PO Last administered on 09/28/17 08:03; Admin Dose 325 MG; Start 09/27/17 at 09:00 DAVID QUACH NP Sep 28, 2017 09:08
--- NOTE | 2017-09-28 10:43 | RADRPT ---
PROCEDURE: XR RIGHT HIP. CLINICAL INDICATION: Hip pain TECHNIQUE: AP and frog lateral views of the right hip were performed. COMPARISON: September 20, 2017 FINDINGS: Right hip intramedullary michelle and screw in place. No hardware failure. Status post fixation of a rig ht intertrochanteric fracture, with mildly improved anatomic alignment since prior exam. IMPRESSION: 1. Status post right intertrochanteric fracture open reduction internal fixation with intramedullary michelle and screw, with mildly improved anatomic alignment. No hardware failure. RPTAT: AAPP Physician Prema Date Time Electronically viewed and signed by Physician Prema on 09/28/2017 10:43 JL/
--- NOTE | 2017-09-28 11:24 | CONS ---
Date/Time of Note Date/Time of Note DATE: 09/28/17 TIME: 11:20 Consult Date/Type/Reason Admit Date/Time Sep 23, 2017 at 16:42 Subjective Patient had xray this AM Objective supervised ambulation 300 feet Vital Signs Date Time Temp Pulse Resp B/P Pulse Ox O2 Delivery O2 Flow Rate FiO2 09/28/17 08:01 98.2 95 18 128/79 99 Room Air 09/24/17 08:00 2.0 Intake and Output 09/27/17 09/27/17 09/28/17 14:59 22:59 06:59 Intake Total 550 ml Balance 550 ml Results/Medications Result Diagram: 09/25/1772909/24/17 0652 Medications Current Medications Morphine Sulfate (morphine) 2 mg Q2H PRN IV PAIN; Start 09/23/17 at 17:30 Ondansetron HCl (Zofran Inj) 4 mg Q6H PRN IV NAUSEA AND/OR VOMITING; Start 08/30 at 17:30 Oxycodone/ Acetaminophen (Percocet (5/ 325)) 1 tab Q4H PRN PO PAIN; Start 08/30 at 17:30 Acetaminophen (Tylenol Tab) 650 mg Q6H PRN PO PAIN AND OR ELEVATED TEMP; Start 09/23/17 at 17:30 Baclofen (Lioresal) 10 mg BID PRN PO SPASM; Start 09/23/17 at 17:30 Bisacodyl (Dulcolax) 5 mg DAILY PRN PO CONSTIPATION; Start 09/23/17 at 17:30 Magnesium Hydroxide (Milk Of Mag) 30 ml BID PRN PO CONSTIPATION; Start at 17:30 Bisacodyl (Dulcolax Supp) 10 mg DAILY PRN [place] CONSTIPATION; Start 09/23/17 at 17:30 Senna (Senokot) 1 tab QHS PO Last administered on 09/27/17 20:52; Admin Dose 1 TAB; Start 09/24/17 at 21:00 Tramadol HCl (Ultram) 50 mg Q4H PRN PO PAIN Last administered on 09/28/17 09: 55; Admin Dose 50 MG; Start 09/24/17 at 19:30 Ibuprofen (Motrin) 800 mg Q4H PRN PO PAIN Last administered on 09/28/17 06:38 ; Admin Dose 800 MG; Start 09/26/17 at 13:00 Docusate Sodium (Colace) 100 mg BID PO Last administered on 09/28/17 08:03; Admin Dose 100 MG; Start 09/27/17 at 09:00 Ferrous Sulfate (Ferrous Sulfate (Ec)) 325 mg BID PO Last administered on 09/28 08:03; Admin Dose 325 MG; Start 09/27/17 at 09:00 Aspirin (Aspirin) 325 mg DAILY PO Last administered on 09/28/17 08:03; Admin Dose 325 MG; Start 09/27/17 at 09:00 Assessment/Plan Additional Assessment/Plan Rehab- Right comminuted intertrochanteric hip fracture, status post ORIF. Continue interdisciplinary rehab activities. Excellent progress. Follow up xray to be reviewed by Ortho, radiology reports satisfactory alignment. Pt WBAT Acute pain syndrome-improved Anemia-continue iron Hemorrhoids. GEOVANNA COHEN MD Sep 28, 2017 11:24
[2017-09-28] MEDS: IBUPROFEN 400 MG TAB PO PRN ×2 (14:57→22:58)
[2017-09-28 16:00] VITALS: BP 120/57; RESP 20
--- NOTE | 2017-09-28 19:16 | PN ---
DATE: 09/28/2017 The 8th postop day. Have been up with a walker with weightbearing as tolerated on the right lower extremity. Complaining of some residual pain and swelling, especially after ambulation. No signs of neurovascular compromise. X-rays of the right hip were obtained after ambulation with full weight bearing did not show any meaningful changes. She could be continued with ambulation with full weight bearing. To be seen by me in about a week from now. Dictated By: In Comfort Ramachandran MD /shekhar/sosa /Document#: [id number]
[2017-09-28 20:00] VITALS: BP 118/62; RESP 18
[2017-09-28] MEDS: SENNA TAB PO SCH (20:43)
[2017-09-29 02:00] VITALS: BP 122/60; RESP 18
[2017-09-29] MEDS: traMADol 50 MG TAB PO PRN ×4 (02:12→20:25)
[2017-09-29 07:00] VITALS: BP 131/60; RESP 18
[2017-09-29 07:31] LABS: BASOPHIL # 0.1 10^3/ul (0.0-0.1); BASOPHILS % 0.6 % (0.0-2.0); EOSINOPHILS # 0.6 10^3/ul (0.0-0.5); EOSINOPHILS % 7.8 % (0.0-7.0); HEMATOCRIT 23.4 % (37.0-47.0); HEMOGLOBIN 7.6 g/dl (12.0-16.0); LYMPHOCYTES # 1.6 10^3/ul (0.8-2.9); LYMPHOCYTES % 19.8 % (15.0-51.0); MEAN CORPUSCULAR HEMOGLOBIN 30.5 pg (29.0-33.0); MEAN CORPUSCULAR HGB CONC 32.5 g/dl (32.0-37.0); MEAN PLATELET VOLUME 9.5 fl (7.4-10.4); MONOCYTE # 0.7 10^3/ul (0.3-0.9); MONOCYTES % 8.3 % (0.0-11.0); PLATELET COUNT 317 10^3/UL (140-415); RED BLOOD COUNT 2.49 10^6/ul (4.20-5.40); RED CELL DISTRIBUTION WIDTH 14.2 % (11.5-14.5); WHITE BLOOD COUNT 8.1 10^3/ul (4.8-10.8)
[2017-09-29] MEDS: ASPIRIN 325 MG TAB PO SCH (08:50)
[2017-09-29] MEDS: DOCUSATE SODIUM 100 MG CAP PO SCH ×2 (08:50→20:25)
[2017-09-29] MEDS: FERROUS SULFATE (EC) 325 MG TAB PO SCH ×2 (08:50→20:25)
--- NOTE | 2017-09-29 12:10 | CONS ---
Date/Time of Note Date/Time of Note DATE: 09/29/17 TIME: 12:09 Assessment/Plan Assessment/Plan Chief Complaint/Hosp Course 62-year-old female with mechanical fall and resultant right hip fracture, who is now status post right hip ORIF transferred to rehabilitation unit for further rehabilitation. 1. Acute intertrochanteric comminuted fracture of the right hip with varus deformity. Status post open reduction internal fixation of intertrochanteric subtrochanteric fracture of the right hip with gamma nail on 09/20/2017. -Continue pain control as needed, PT/OT evaluation and treatment. 2. Iron deficiency anemia, asymptomatic. -Patient received total 3 doses of IV iron. She will be continued on oral replacement 2 times a day. -Instructed patient on healthy diet to continue on discharge and to repeat CBC in 2 months. 3. History of kidney stones. Prophylaxis SCD/ambulation (RECOMMEND ASPIRIN 325 MG X 6WEEKS) Patient is for discharge in a.m. She was given prescription for iron supplements to take home with. Recommend LORIE sheffield upon discharge as she has arranged major traveling next 1 or 2 weeks. Patient was also instructed on healthy diet rich in iron. She was also given education on symptoms of anemia and went to seek medical attention. Otherwise, patient can follow-up with her primary care doctor and have CBC repeated in 2 months. Patient was seen in collaboration with . Problems: Consultation Date/Type/Reason Admit Date/Time Sep 23, 2017 at 16:42 24 HR Interval Summary Free Text/Dictation Doing well. Exam/Review of Systems Vital Signs Vitals Vital Signs Date Time Temp Pulse Resp B/P Pulse Ox O2 Delivery O2 Flow Rate FiO2 09/29/17 07:00 98.8 79 18 131/60 99 09/28/17 08:01 Room Air Exam General: Well developed female, not in any acute distress . HEENT: Normocephalic, Atraumatic, No laceration or hematoma; Eyes: PEERL, Conjunctiva clear, Anicteric sclera Neck: Supple without any lymphadenopathy, nontender, no JVD, no carotid bruits, trachea midline, no thyromegaly Cardiac: S1, S2 auscultated, regular rhythm and rate, no mumurs or gallop Pulmonary: Normal respiratory effort. Chest clear to auscultation bilaterally, no adventitious breath sounds GI: Abdomen normal to inspection. Soft, non- distended, no masses, no rebound tenderness or guarding. Bowel sounds active on all four quadrants Genitourinary: Deferred Extremities: Right hip surgical incision with intact dressing. There is mild edema on right lower extremity. No cyanosis, clubbing, or edema. Pulses [2+] bilaterally.. No focal weakness appreciated. Neurologic: Alert to person, place, time, and situation. Affect appropriate, intact sensation. Skin: Clean,dry, and intact. No ecchymosis, no rashes, or lesions Results Result Diagram: 09/29/17 0635 Results 24 hrs Laboratory Tests Test 09/29/17 06:35 White Blood Count 8.1 # Red Blood Count 2.49 L Hemoglobin 7.6 L Hematocrit 23.4 L Mean Corpuscular Volume 94.0 Mean Corpuscular Hemoglobin 30.5 Mean Corpuscular Hemoglobin Concent 32.5 Red Cell Distribution Width 14.2 Platelet Count 317 Mean Platelet Volume 9.5 Neutrophils % 62.0 Lymphocytes % 19.8 Monocytes % 8.3 Eosinophils % 7.8 H Basophils % 0.6 Nucleated Red Blood Cells % 0.0 Neutrophils # 5.0 Lymphocytes # 1.6 Monocytes # 0.7 Eosinophils # 0.6 H Basophils # 0.1 Nucleated Red Blood Cells # 0.0 Medications Medications Current Medications Morphine Sulfate (morphine) 2 mg Q2H PRN IV PAIN; Start 09/23/17 at 17:30 Ondansetron HCl (Zofran Inj) 4 mg Q6H PRN IV NAUSEA AND/OR VOMITING; Start 08/30 at 17:30 Oxycodone/ Acetaminophen (Percocet (5/ 325)) 1 tab Q4H PRN PO PAIN; Start 08/30 at 17:30 Acetaminophen (Tylenol Tab) 650 mg Q6H PRN PO PAIN AND OR ELEVATED TEMP; Start 09/23/17 at 17:30 Baclofen (Lioresal) 10 mg BID PRN PO SPASM; Start 09/23/17 at 17:30 Bisacodyl (Dulcolax) 5 mg DAILY PRN PO CONSTIPATION; Start 09/23/17 at 17:30 Magnesium Hydroxide (Milk Of Mag) 30 ml BID PRN PO CONSTIPATION; Start at 17:30 Bisacodyl (Dulcolax Supp) 10 mg DAILY PRN [place] CONSTIPATION; Start 09/23/17 at 17:30 Senna (Senokot) 1 tab QHS PO Last administered on 09/27/17 20:52; Admin Dose 1 TAB; Start 09/24/17 at 21:00 Tramadol HCl (Ultram) 50 mg Q4H PRN PO PAIN Last administered on 09/29/17 10: 14; Admin Dose 50 MG; Start 09/24/17 at 19:30 Docusate Sodium (Colace) 100 mg BID PO Last administered on 09/29/17 08:50; Admin Dose 100 MG; Start 09/27/17 at 09:00 Ferrous Sulfate (Ferrous Sulfate (Ec)) 325 mg BID PO Last administered on 09/29 08:50; Admin Dose 325 MG; Start 09/27/17 at 09:00 Aspirin (Aspirin) 325 mg DAILY PO Last administered on 09/29/17 08:50; Admin Dose 325 MG; Start 09/27/17 at 09:00 Ibuprofen (Motrin) 400 mg TID PRN PO PAIN Last administered on 09/28/17 22: 58; Admin Dose 400 MG; Start 09/28/17 at 14:00 DAVID QUACH NP Sep 29, 2017 12:10
--- NOTE | 2017-09-29 12:27 | CONS ---
Date/Time of Note Date/Time of Note DATE: 09/29/17 TIME: 12:27 Consult Date/Type/Reason Admit Date/Time Sep 23, 2017 at 16:42 Subjective Comfortable Objective Supervised answers and ambulation Vital Signs Date Time Temp Pulse Resp B/P Pulse Ox O2 Delivery O2 Flow Rate FiO2 09/29/17 07:00 98.8 79 18 131/60 99 09/28/17 08:01 Room Air Results/Medications Result Diagram: 09/29/17 0635 Results 24 hrs Laboratory Tests Test 09/29/17 06:35 White Blood Count 8.1 # Red Blood Count 2.49 L Hemoglobin 7.6 L Hematocrit 23.4 L Mean Corpuscular Volume 94.0 Mean Corpuscular Hemoglobin 30.5 Mean Corpuscular Hemoglobin Concent 32.5 Red Cell Distribution Width 14.2 Platelet Count 317 Mean Platelet Volume 9.5 Neutrophils % 62.0 Lymphocytes % 19.8 Monocytes % 8.3 Eosinophils % 7.8 H Basophils % 0.6 Nucleated Red Blood Cells % 0.0 Neutrophils # 5.0 Lymphocytes # 1.6 Monocytes # 0.7 Eosinophils # 0.6 H Basophils # 0.1 Nucleated Red Blood Cells # 0.0 Medications Current Medications Morphine Sulfate (morphine) 2 mg Q2H PRN IV PAIN; Start 09/23/17 at 17:30 Ondansetron HCl (Zofran Inj) 4 mg Q6H PRN IV NAUSEA AND/OR VOMITING; Start 08/30 at 17:30 Oxycodone/ Acetaminophen (Percocet (5/ 325)) 1 tab Q4H PRN PO PAIN; Start 08/30 at 17:30 Acetaminophen (Tylenol Tab) 650 mg Q6H PRN PO PAIN AND OR ELEVATED TEMP; Start 09/23/17 at 17:30 Baclofen (Lioresal) 10 mg BID PRN PO SPASM; Start 09/23/17 at 17:30 Bisacodyl (Dulcolax) 5 mg DAILY PRN PO CONSTIPATION; Start 09/23/17 at 17:30 Magnesium Hydroxide (Milk Of Mag) 30 ml BID PRN PO CONSTIPATION; Start at 17:30 Bisacodyl (Dulcolax Supp) 10 mg DAILY PRN [place] CONSTIPATION; Start 09/23/17 at 17:30 Senna (Senokot) 1 tab QHS PO Last administered on 09/27/17 20:52; Admin Dose 1 TAB; Start 09/24/17 at 21:00 Tramadol HCl (Ultram) 50 mg Q4H PRN PO PAIN Last administered on 09/29/17 10: 14; Admin Dose 50 MG; Start 09/24/17 at 19:30 Docusate Sodium (Colace) 100 mg BID PO Last administered on 09/29/17 08:50; Admin Dose 100 MG; Start 09/27/17 at 09:00 Ferrous Sulfate (Ferrous Sulfate (Ec)) 325 mg BID PO Last administered on 09/29 08:50; Admin Dose 325 MG; Start 09/27/17 at 09:00 Aspirin (Aspirin) 325 mg DAILY PO Last administered on 09/29/17 08:50; Admin Dose 325 MG; Start 09/27/17 at 09:00 Ibuprofen (Motrin) 400 mg TID PRN PO PAIN Last administered on 09/28/17 22: 58; Admin Dose 400 MG; Start 09/28/17 at 14:00 Assessment/Plan Additional Assessment/Plan Rehab- Right comminuted intertrochanteric hip fracture, status post ORIF. Continue rehab activities, Pt WBAT Acute pain syndrome-improved Anemia-continue iron Hemorrhoids. GEOVANNA COHEN MD Sep 29, 2017 12:27
[2017-09-29] MEDS: IBUPROFEN 400 MG TAB PO PRN ×2 (14:10→22:28)
[2017-09-29 20:00] VITALS: BP 123/59; RESP 18
[2017-09-29] MEDS: SENNA TAB PO SCH (20:25)
[2017-09-30 02:00] VITALS: BP 125/72; RESP 18
[2017-09-30] MEDS: traMADol 50 MG TAB PO PRN (04:00)
[2017-09-30 07:30] VITALS: BP 119/58; RESP 20
[2017-09-30] MEDS: ASPIRIN 325 MG TAB PO SCH (08:44)
[2017-09-30] MEDS: DOCUSATE SODIUM 100 MG CAP PO SCH (08:45)
[2017-09-30] MEDS: FERROUS SULFATE (EC) 325 MG TAB PO SCH (08:45)
--- NOTE | 2017-09-30 11:33 | DS ---
Date/Time of Note Date/Time of Note DATE: 09/30/17 TIME: 11:33 Discharge Summary Admission/Discharge Info Admit Date/Time Sep 23, 2017 at 16:42 Discharge Date/Time Discharge Diagnosis 1. Right comminuted intertrochanteric hip fracture, status post ORIF. 2. Anemia. 3. Hemorrhoids. 4. Renal stones. 5. Improvements in self-care and mobility. Patient Condition: Good Hospital Course 62-year-old female with mechanical fall and resultant right hip fracture, who is now status post right hip ORIF transferred to rehabilitation unit for further rehabilitation. 1. Acute intertrochanteric comminuted fracture of the right hip with varus deformity. Status post open reduction internal fixation of intertrochanteric subtrochanteric fracture of the right hip with gamma nail on 09/20/2017. -Continue pain control as needed, PT/OT evaluation and treatment. 2. Iron deficiency anemia, asymptomatic. -Patient received total 3 doses of IV iron. She will be continued on oral replacement 2 times a day. -Instructed patient on healthy diet to continue on discharge and to repeat CBC in 2 months. 3. History of kidney stones. Prophylaxis SCD/ambulation (RECOMMEND ASPIRIN 325 MG X 6WEEKS) Patient is for discharge in a.m. She was given prescription for iron supplements to take home with. Recommend LORIE sheffield upon discharge as she has arranged major traveling next 1 or 2 weeks. Patient was also instructed on healthy diet rich in iron. She was also given education on symptoms of anemia and went to seek medical attention. Otherwise, patient can follow-up with her primary care doctor and have CBC repeated in 2 months. Patient was seen in collaboration with . Home Meds Active Scripts Bisacodyl* (Bisacodyl*) 5 Mg Tablet., 5 MG PO DAILY Y for CONSTIPATION for 30 Days Prov:DAVID QUACH V[employer] 09/23/17 Baclofen* (Baclofen*) 10 Mg Tablet, 20 MG PO BID Y for MUSCLE SPASMS, #60 TAB Prov:DAVID QUACH [employer] 09/23/17 Docusate Sodium (Dok) 100 Mg Capsule, 100 MG PO BID, #60 CAP Prov:DAVID QUACH [employer] 09/23/17 Oxycodone HCl/Acetaminophen (Oxycodone-Acetaminophen 5-325) 1 Each Tablet, 1 TAB PO Q4H Y for PAIN, #30 TAB Prov:DAVID QUACH NP 09/23/17 [morphine] 2 MG/ML SOLN No Conflict Check, 2 MG IV Q2H Y for PAIN for 7 Days Prov:DAVID QUACH NP 09/23/17 Acetaminophen (MAPAP) 325 Mg Tablet, 650 MG PO Q6H Y for PAIN LEVEL 1-3 OR FEVER , #60 TAB Prov:DAVID QUACH NP 09/23/17 Ibuprofen* (Ibuprofen*) 800 Mg Tablet, 800 MG PO Q6H Y for PAIN, #60 TAB Prov:DAVID QUACH NP 09/23/17 Enoxaparin Sodium (Enoxaparin Sodium) 40 Mg/0.4 Ml Syringe, 40 MG SC DAILY for 7 Days Prov:DAVID QUACH NP 09/23/17 Ferrous Gluconate* (Fergon*) 325 Mg Tab, 325 MG PO BID, #60 TAB Prov:DAVID QUACH NP 09/23/17 Primary Care Provider Care Physician No Primary GEOVANNA COHEN MD Sep 30, 2017 11:33
[2017-09-30 20:00] VITALS: BP 124/62; RESP 18
[2017-10-01 02:00] VITALS: BP 120/62; RESP 18
== END 2017-09-30 12:30 | disposition home or self-care (01) | DRG 561 ==
LOC: VRC 16:42
PROVIDERS: ADMIT Physical Medicine & Rehabilitation; ATTEND Internal Medicine Pulmonary Disease
PROC: F07Z5ZZ Bed Mobility Treatment (ICD-10-PCS; principal; 2017-09-23)
PROC: F08Z2ZZ Grooming/Personal Hygiene Treatment (ICD-10-PCS; 2017-09-23)
DX: S72.141D Displaced intertrochanteric fracture of right femur, subsequent encounter for closed fracture with routine healing (principal); N20.0 Calculus of kidney; D50.9 Iron deficiency anemia, unspecified; G89.18 Other acute postprocedural pain; K64.9 Unspecified hemorrhoids; W18.30XD Fall on same level, unspecified, subsequent encounter
CPT/HCPCS: 73510; 80053; 81001; 85025; 87086; 97110; 97112; 97116; 97150; 97162; 97167; 97530; 97535; J1650; J2916